=== PATIENT | male | born 1965 | race Caucasian/White ===

== ENCOUNTER 2017-01-02 19:22 | Inpatient (IN) | payer BC, MEDICAID, OTHER ==
[2017-01-02] MEDS ORDERED: IPRATROPIUM/ALBUTEROL (0.5MG/3MG) NEB INH ONE ×2 (19:26→19:29)
[2017-01-02] MEDS ORDERED: METHYLPREDNISOLONE PF 125MG/VIAL IVP ONE (19:27)
--- NOTE | 2017-01-02 19:33 | Emergency Department Record ---
History of Present Illness - General Chief Complaint: Shortness of breath Stated Complaint: KIMBERLEY,CHEST CONGESTION,WHEEZING,COUGH Time Seen by Provider: 01/02/17 19:28 Source: Patient, Family Mode of Arrival: Ambulatory Limitations: No limitations - History of Present Illness Initial Comments: 51 yo male presents with cough, congestion, shortness of breath for one week that is getting worse. He has been coughing and wheezing. He has had some brownish sputum. He is unaware of any fevers. His cough causes left sided chest pain in the lower left ribs. He denies any history of smoking. He has a history of environmental allergies and is currently being exposed to dust and cats where he lives. No history of CAD but he has had multiple TIA's in the past with the first one occurring in 1995. He takes a daily aspirin. No known history of asthma. No current PCP. He moved recently from [place] on week ago. He has had some mild calf pain since then but no swelling. MD Complaint: Cough, Shortness of breath -: Week(s) (1) Radiation: Other (left chest) Severity: Moderate Quality: Aching, Sharp Consistency: Constant Improves With: Nothing Worsens With: Coughing Context: Allergen exposure Associated Symptoms: Cough Treatments Prior to Arrival: None - Related Data Home Medications Medication Instructions Recorded Confirmed Last Taken No Home Med [NO HOME MEDS] 01/02/17 01/02/17 Unknown Allergies Allergy/AdvReac Type Severity Reaction Status Date / Time No Known Drug Allergies Allergy Verified 09/11/14 21:19 Review of Systems Constitutional: Reports: Chills, Fever. Denies: Malaise, Weakness Eyes: Denies: Eye discharge, Eye pain, Photophobia, Vision change ENT: Reports: Congestion. Denies: Throat pain Respiratory: Reports: Cough, Wheezes. Denies: Hemoptysis (brown sputum) Cardiovascular: Reports: Chest pain (left rib tenderness). Denies: Edema, Palpitations, Syncope Endocrine: Denies: Fatigue, Polydipsia, Polyuria Gastrointestinal: Denies: Abdominal pain, Diarrhea, Nausea, Vomiting Genitourinary: Denies: Dysuria, Frequency, Hematuria Musculoskeletal: Denies: Arthralgia, Back pain, Joint swelling, Myalgia, Neck pain Skin: Denies: Bruising, Change in color, Rash Neurological: Denies: Headache, Numbness, Weakness Psychiatric: Reports: Anxiety Hematological/Lymphatic: Denies: Anemia, Blood Clots, Easy bleeding, Easy bruising, Swollen glands Past Medical History - SOCIAL HISTORY Smoking Status: Never smoker - RESPIRATORY Hx Respiratory Disorders: No - CARDIOVASCULAR Hx Cardio Disorders: No - NEURO Hx Neuro Disorders: Yes Hx TIA: Yes - GI Hx GI Disorders: No - Hx Genitourinary Disorders: Yes Hx Kidney Stones: Yes - ENDOCRINE Hx Endocrine Disorders: No - MUSCULOSKELETAL Hx Musculoskeletal Disorders: No - PSYCH Hx Psych Problems: Yes Hx Anxiety: Yes - HEMATOLOGY/ONCOLOGY Hx Hematology/Oncology Disorders: No Family Medical History Hx Heart Disease: Grandparents Physical Exam - General General Appearance: Alert, Oriented x3, Cooperative, Anxious, Other (dyspneic) Limitations: No limitations - Head Head exam: Normal inspection - Eye Eye exam: Normal appearance. negative: Conjunctival injection, Periorbital swelling - ENT ENT exam: Normal exam, Mucous membranes moist Ear exam: Normal external inspection Nasal Exam: Normal inspection Mouth exam: Normal external inspection Teeth exam: Normal inspection Throat exam: Normal inspection. negative: Tonsillar erythema, Tonsillomegaly, Tonsillar exudate, R peritonsillar mass, L peritonsillar mass - Neck Neck exam: Normal inspection, Full ROM. negative: Tenderness - Respiratory Respiratory exam: Accessory muscle use, Decreased breath sounds, Prolonged expiratory, Respiratory distress (mild increase in work of breathing), Rhonchi, Wheezes. negative: Normal lung sounds bilaterally - Cardiovascular Cardiovascular Exam: Tachycardia Peripheral Pulses: 2+: Radial (R), Radial (L) - GI/Abdominal GI/Abdominal exam: Soft. negative: Tenderness - Rectal Rectal exam: Deferred - exam: Deferred - Extremities Extremities exam: Normal inspection, Full ROM, Normal capillary refill. negative: Pedal edema, Tenderness - Back Back exam: Reports: Normal inspection, Full ROM. Denies: CVA tenderness (R), CVA tenderness (L), Muscle spasm, Rash noted, Tenderness - Neurological Neurological exam: Alert, Normal gait, Oriented X3 - Psychiatric Psychiatric exam: Normal affect, Normal mood - Skin Skin exam: Dry, Intact, Normal color, Warm Course - Reevaluation(s) Reevaluation #1: The patient was very diffusely wheezy on initial examination After the first Duoneb his air exchange was greatly improved but still with diffuse wheezing EKG 19:37 Sinus rhythm rate 87, intervals normal, axis left that is new, poor R wave progress, no acute ST changes 01/02/17 19:45 01/02/17 19:54 No acute changes on the CBC with WBC count of 10 and Hgb of 16.6 01/02/17 20:10 No acute changes on the CMP except mild elevation on alt Normal Troponin 01/02/17 20:11 Influenza swabs were negative 01/02/17 20:27 The wheezing has improved but is persistent after 2 nebulized treatments. I discussed further observation and possible admission for treatments, steroids, and antibiotics. 01/02/17 20:29 The CXR was read as no acute cardiopulmonary disease and no changes form 201301/02/17 21:52 The wheezing is better but still present The CTA has been completed and waiting for results The patient continues to have left chest pain with cough. I have discussed with him admission likely due to ongoing wheezing, pending CT results. 01/02/17 22:10 I SW the radiology. No central PE. The lower long field were poorly timed and limited. There is bronchial wall thickening and mucous plugging that may be consistent with infectious cause. Given the limitations of the CT he will be given one dose of Lovenox and order LE dopplers in the AM due his recent travel and some calf pain. Medical Decision Making - Lab Data Result diagrams: 01/02/17 19:30 01/02/17 19:30 Disposition Disposition: Admit Clinical Impression: Bronchitis, Wheezing, Chest wall pain Disposition: Still a Patient at [facility] Decision to Admit: Admit from ER Decision to Admit Date: 01/02/17 Decision to Admit Time: 22:13 Forms: Patient Portal Access Time of Disposition: 22:13 Quality - Quality Measures Quality Measures: N/A - Blood Pressure Screening Does Patient Have Any of the Following: No Blood Pressure Classification: Pre-Hypertensive BP Reading Systolic Measurement: 137 Diastolic Measurement: 66 Screening for High Blood Pressure: < Pre-Hypertensive BP, F/U Documented > [ [id number]] Pre-Hypertensive Follow-up Interventions: Referral to alternative/primary care provider.
[2017-01-02] MEDS ORDERED: ACETAMINOPHEN 1,000 MG/100 ML BTL IVPB ONE (19:38)
[2017-01-02 19:40] LABS: HEMATOCRIT 47.5 % (42.0-52.0); HEMOGLOBIN 16.6 gm/dl (14.0-18.0); MEAN CORPUSCULAR HEMOGLOBIN 30.4 pg (27-33); MEAN CORPUSCULAR HGB CONC 34.9 g/dl (32-36); MEAN PLATELET VOLUME 10.2 fl (7.4-10.4); PLATELET COUNT 291 K/uL (130-400); RED BLOOD COUNT 5.46 M/uL (4.40-5.70); RED CELL DISTRIBUTION WIDTH 13.4 % (11.5-14.5); WHITE BLOOD COUNT W/O DIFF 10.2 K/uL (4.2-12.2)
[2017-01-02] MEDS ORDERED: ASPIRIN 81 MG CHEWABLE TABLET PO ONE (19:43)
[2017-01-02 19:55] LABS: ALB/GLOB RATIO 1.5 (1.1-1.8); ALBUMIN 4.5 g/dL (4.0-5.0); ALKALINE PHOSPHATASE 106 U/L (40-129); ALT/SGPT 70 U/L (<41); AST/SGOT 36 U/L (10.0-50.0); BLOOD UREA NITROGEN 15 mg/dL (6-20); CREATININE 1.2 mg/dL (0.7-1.2); EST GLOMERULAR FILTRATION RATE > 60 mL/min; GLUCOSE,RANDOM 101 mg/dL (74-109); TOTAL PROTEIN 7.5 g/dL (6.6-8.7)
[2017-01-02 19:57] LABS: TROPONIN I < 0.30 ng/mL (0.00-0.300)
[2017-01-02 19:58] LABS: INFLUENZA A NEGATIVE (NEGATIVE); INFLUENZA B NEGATIVE (NEGATIVE)
[2017-01-02] MEDS ORDERED: AZITHROMYCIN 500 MG TABLET PO ONE (20:11)
[2017-01-02] MEDS ORDERED: CEFTRIAXONE SODIUM 1 GM in 0.9 % SODIUM CHLORIDE 100ML 100 ML IVPB ONE (20:11)
[2017-01-02] MEDS ORDERED: MORPHINE SULFATE 5 MG/ML PFS IVP ONE (20:31)
[2017-01-02] MEDS ORDERED: ALBUTEROL SULFATE (0.083%) 2.5 MG/3 ML NEB INH ONE (20:33)
[2017-01-02] MEDS ORDERED: ONDANSETRON HCL IV 4 MG/2 ML VIAL IVP ONE (20:54)
[2017-01-02] MEDS ORDERED: KETOROLAC 30 MG/ML VIAL IVP ONE (21:50)
[2017-01-02] MEDS ORDERED: ENOXAPARIN 100 MG/ML SYR SQ ONE (23:13)
[2017-01-02] MEDS ORDERED: DIPHENHYDRAMINE HCL 25 MG CAPSULE PO PRN (23:13)
[2017-01-02] MEDS ORDERED: KETOROLAC 30 MG/ML VIAL IVP PRN (23:13)
[2017-01-02] MEDS ORDERED: ALBUTEROL SULFATE (0.083%) 2.5 MG/3 ML NEB INH PRN (23:13)
[2017-01-02] MEDS ORDERED: ACETAMINOPHEN 500 MG TABLET PO PRN (23:13)
[2017-01-02] MEDS: METHYLPREDNISOLONE PF 125MG/VIAL IVP SCH (23:50)
[2017-01-02] MEDS: MORPHINE SULFATE 5 MG/ML PFS IVP PRN (23:52)
[2017-01-03] MEDS: IPRATROPIUM/ALBUTEROL (0.5MG/3MG) NEB INH SCH ×6 (00:01→22:08)
--- NOTE | 2017-01-03 06:29 | History & Physical ---
History of Present Illness - Date of Service Date of Service for History & Physical: 01/03/17 - History of Present Illness Admitting Diagnosis: Dyspnea, Bronchitis, Chest pain, hypoxia History of Present Illness: 51 yo male admitted KIMBERLEY. PMHx of seasonal allergies, TIA x 3 (most recent 1.5 yrs ago), obesity. Patient presented to the ED yesterday with one week of worsening SOB. Aggravated by activity, coughing. Alleviated by breathing treatments in the ED. Associated symptoms include wheezing, brownish sputum, left sided lower rib pain, and fatigue. upon presentation, HR 110, RR 32, BP 149/100, O2 95% on RA. WBC normal, Eo slightly elevated at 10 (normal <6), normal cmp, bnp wnl, influenza a & b negative, troponin neg x 2. CXR: NAP, CTA: limited eval for PE, mild wall thickening lower lung bronchi suspicious for bronchitis, no consolidation noted. B/L venous dopplers negative. Patient received two neb treatments, IV antibiotics and IV steroid. Admitted with continuous pulse ox and library monitor. 01/03- patient lying comfortably in bed. states he feels much improved since admission. denies cp, sob, fever, chills, n/v, abd pain, change in GI or function, weakness, dizziness or lightheadedness. reports headache, consistent w/ his usual migraine headaches. B/L lower extremity calf pain as well. Patient reports recently moving to [place] from [place]. His last day of travel was Dec 22. States he's living in [facility] with friends. Reports recent resp irritation related to exposure to cats, dust. denies h/o PE, DVT, [place], CVA. reports h/o TIA x 3 (earliest in 1995, most recent in 2016). PCP: none Travel Screening - Travel/Exposure Within Last 30 Days Have you traveled within the last 30 days?: Yes Location Detail:: [place], [place] - Travel/Exposure Within Last Year Have you traveled outside the [place] in the last year?: No - Additonal Travel Details Have you been exposed to anyone with a communicable illness?: No - Travel Symptoms Symptom Screening: None - Additional Travel Comment Additional Travel/Exposure Comment: pt moved from [place] after [place]. Review of Systems Constitutional: Reports: Chills. Denies: Fever, Malaise, Weakness Eyes: Denies: Eye discharge, Eye pain, Photophobia, Vision change ENT: Reports: Congestion. Denies: Throat pain Respiratory: Reports: Cough, Wheezes. Denies: Hemoptysis (brown sputum) Cardiovascular: Denies: Chest pain, Edema, Palpitations, Syncope Endocrine: Denies: Fatigue, Polydipsia, Polyuria Gastrointestinal: Denies: Abdominal pain, Diarrhea, Nausea, Vomiting Genitourinary: Denies: Dysuria, Frequency, Hematuria Musculoskeletal: Denies: Arthralgia, Back pain, Joint swelling, Myalgia, Neck pain Skin: Denies: Bruising, Change in color, Rash Neurological: Denies: Headache, Numbness, Weakness Psychiatric: Reports: Anxiety Hematological/Lymphatic: Denies: Anemia, Blood Clots, Easy bleeding, Easy bruising, Swollen glands Past Medical History - SOCIAL HISTORY Smoking Status: Never smoker Alcohol Use: Occasional Drug Use: None - RESPIRATORY Hx Respiratory Disorders: No Hx Pneumonia: No (as an ) - CARDIOVASCULAR Hx Cardio Disorders: No Hx Chest Pain: Yes Hx Palpitations: Yes - NEURO Hx Neuro Disorders: Yes Hx Headaches: Yes (migraines) Hx TIA: Yes - GI Hx GI Disorders: No - Hx Genitourinary Disorders: Yes Hx Kidney Stones: Yes - ENDOCRINE Hx Endocrine Disorders: No Hx Diabetes: No Hx Thyroid Disease: No - MUSCULOSKELETAL Hx Musculoskeletal Disorders: No - PSYCH Hx Psych Problems: Yes Hx Anxiety: Yes - HEMATOLOGY/ONCOLOGY Hx Hematology/Oncology Disorders: No Family Medical History Any Significant Family History?: Yes Hx Cancer: Grandparents Hx Heart Disease: Father, Grandparents Hx HTN: Father, Mother Hx Stroke: Mother H&P Meds/Allergies - Allergies Allergies: Allergies Allergy/AdvReac Type Severity Reaction Status Date / Time No Known Drug Allergies Allergy Verified 09/11/14 21:19 - Home Medications Home Medications Medication Instructions Recorded Confirmed Last Taken No Home Med [NO HOME MEDS] 01/02/17 01/02/17 Unknown - Active Medications Active Medications: Current Medications Acetaminophen (Tylenol 500mg Tab) 1,000 mg PO Q6H PRN PRN Reason: PAIN/TEMP Albuterol Sulfate () 2.5 mg INH RESP.Q2H PRN PRN Reason: DIFFICULTY IN BREATHING Albuterol/Ipratropium (Duoneb) 3 ml INH RESP.Q4H.WA [facility] Last Admin: 01/03/17 06:12 Dose: 3 ml Azithromycin (Zithromax) 500 mg PO DAILY [facility] Diphenhydramine HCl (Benadryl Capsule) 25 mg PO Q6H PRN PRN Reason: SLEEP Last Admin: 01/03/17 00:52 Dose: 25 mg Ceftriaxone Sodium 1 gm/ (Sodium Chloride) 100 mls @ 100 mls/hr IVPB Q24H [facility] Stop: 01/08/17 21:01 Ketorolac Tromethamine (Toradol) 15 mg IVP Q8H PRN PRN Reason: Pain - General Methylprednisolone Sodium Succinate (Solu-Medrol) 60 mg IVP Q8HR [facility] Last Admin: 01/02/17 23:50 Dose: 60 mg Morphine Sulfate (Morphine Sulfate) 2.5 mg IVP Q4H PRN PRN Reason: Pain - General Stop: 01/09/17 23:14 Last Admin: 01/02/17 23:52 Dose: 2.5 mg Physical Exam - Vital Signs Vital Signs: Vital Signs - Last 24 Hrs Temp Pulse Pulse Resp BP Pulse Ox 01/03/17 06:16 91 H 18 92 L 01/03/17 06:12 90 18 96 01/03/17 00:01 78 20 97 01/02/17 23:13 97.9 F 79 24 131/74 96 - General General Appearance: Alert, Oriented x3, Cooperative, No acute distress Limitations: No limitations - Head Head exam: Normal inspection - Eye Eye exam: Normal appearance. negative: Conjunctival injection, Periorbital swelling - ENT ENT exam: Normal exam, Mucous membranes moist Ear exam: Normal external inspection Nasal Exam: Normal inspection Mouth exam: Normal external inspection Teeth exam: Normal inspection Throat exam: Normal inspection. negative: Tonsillar erythema, Tonsillomegaly, Tonsillar exudate, R peritonsillar mass, L peritonsillar mass - Neck Neck exam: Normal inspection, Full ROM. negative: Tenderness - Respiratory Respiratory exam: Decreased breath sounds, Prolonged expiratory, Rhonchi, Wheezes. negative: Normal lung sounds bilaterally, Accessory muscle use, Respiratory distress - Cardiovascular Cardiovascular Exam: Tachycardia Peripheral Pulses: 2+: Radial (R), Radial (L) - GI/Abdominal GI/Abdominal exam: Soft. negative: Tenderness - Rectal Rectal exam: Deferred - exam: Deferred - Extremities Extremities exam: Normal inspection, Full ROM, Normal capillary refill, Other ( pain with palpation to back of b/l calves, negative ana's sign). negative: Pedal edema, Tenderness - Back Back exam: Reports: Normal inspection, Full ROM. Denies: CVA tenderness (R), CVA tenderness (L), Muscle spasm, Rash noted, Tenderness - Neurological Neurological exam: Alert, Normal gait, Oriented X3 - Psychiatric Psychiatric exam: Normal affect, Normal mood - Skin Skin exam: Dry, Intact, Normal color, Warm Results - Labs Result Diagrams: 01/02/17 19:30 01/02/17 19:30 VTE H&P Assessment - Risk for VTE Risk for VTE: Yes Risk Level: Low Risk Assessment Date: 01/03/17 Risk Assessment Time: 10:00 VTE Orders Placed or Will Be Placed: Yes Plan - Inpatient Certification Inpatient Certification: Admit to inpatient care: Based on my medical assessment, after consideration of patient's risk factors (age, co-morbidities and patient presenting symptoms and acuity), I expect that this patient will remain in the hospital greater than or equal to two midnights and that the services needed warrant inpatient care because: Patient Risk Factors: [diff in breathing, bronchitis, shortness of breath] Estimated length of stay: [2-3 nights] The patient may reasonably be expected to be discharged or transferred to a hospital within 96 hours after admission to [facility]. Services needed: [cardiac, pulm monitoring, resp therapy, duo neb treatments, IV antibiotics, IV steroids] Post hospital care (if known): [home, self care] I certify that my determination is in accordance with my understanding of Medicare requirements for reasonable and necessary inpatient services. 01/03/17 20:13 - Detailed Diagnosis and Plan (1) Bronchitis Current Visit: Yes Status: Acute Base Code: J40 - BRONCHITIS, NOT SPECIFIED ACUTE OR CHRONIC Comment: 01/03- bronchitis vs reactive airway vs. other? - CXR: nap, CTA: suggests bronchitis. normal wbc. Eosinophils 10. afebrile - Increase Rocephin to 1 gm Q12 H, continue azithro 500 IV qd, IV Solu medrol 60 mg Q8H, duo neb treatments Q4H WA, inh albuterol Q2PRN. - continuous pulse ox and library monitor - supplemental O2 as needed - VS Q8H - tylenol, motrin PRN for any fever - Restoril QHS prn for sleep, anxiety - will monitor closely (2) Wheezing Current Visit: Yes Status: Acute Base Code: R06.2 - WHEEZING Comment: - bronchitis vs reactive airway vs. other? - CXR: nap, CTA: suggests bronchitis. normal wbc. Eosinophils 10. afebrile - Increase Rocephin to 1 gm Q12 H, continue azithro 500 IV qd, IV Solu medrol 60 mg Q8H, duo neb treatments Q4H WA, inh albuterol Q2PRN. - continuous pulse ox and library monitor - supplemental O2 as needed - VS Q8H - tylenol, motrin PRN for any fever - Restoril QHS prn for sleep, anxiety - will monitor closely (3) Full code status Current Visit: Yes Status: Acute Base Code: Z78.9 - OTHER SPECIFIED HEALTH STATUS Comment: 01/03- pt is full code
[2017-01-03] MEDS: METHYLPREDNISOLONE PF 125MG/VIAL IVP SCH ×3 (06:39→22:09)
[2017-01-03] MEDS: MORPHINE SULFATE 5 MG/ML PFS IVP PRN (06:40)
[2017-01-03] MEDS: ONDANSETRON HCL IV 4 MG/2 ML VIAL IVP PRN ×2 (08:49→15:56)
[2017-01-03] MEDS ORDERED: FLU VAC QS 2017-18 (INPT, 6MO+) 60MCG/0.5ML IM ONE (09:15)
[2017-01-03] MEDS: CEFTRIAXONE SODIUM 1 GM in 0.9 % SODIUM CHLORIDE 100ML 100 ML IVPB SCH ×2 (09:54→22:08)
--- NOTE | 2017-01-03 09:57 | RADIOLOGY REPORT ---
EXAM: CHEST, TWO VIEWS HISTORY: COUGH AND CONGESTION FOR THE LAST FEW DAYS. SEASONAL ALLERGIES. TECHNIQUE: Upright PA and lateral views of the chest were obtained. Comparison: Chest one view dated 08/21/13. FINDINGS: The heart is normal in size and the pulmonary vasculature is nondilated. The thoracic aorta is mildly tortuous. The lungs and pleural spaces appear clear. Mild degenerative end plate changes are scattered throughout the visualized spine. IMPRESSION: NO RADIOGRAPHIC EVIDENCE OF ACUTE CARDIOPULMONARY DISEASE. JOB [facility]BER: [id number] [facility]
[2017-01-03] MEDS: AZITHROMYCIN 500 MG TABLET PO SCH (10:03)
--- NOTE | 2017-01-03 10:06 | CT ANGIOGRAM REPORT ---
EXAM: CT ANGIOGRAM OF THE CHEST HISTORY: COUGH, WHEEZING AND CONGESTION FOR SEVERAL DAYS. TECHNIQUE: Routine CT angiogram of the chest was performed utilizing a pulmonary embolus protocol with 80 ml of Omnipaque 350 utilized. Coronal and sagittal reformatted images were generated and reviewed. Comparison: Two view chest radiographic examination dated 01/02/17. FINDINGS: Opacification of the lower lobe arteries is suboptimal. There is no evidence of luminal filling defect within the outflow tract, main arteries, upper lobar arteries nor upper segmental arteries. Embolus within the lower lobe and right middle lobe arteries cannot be excluded. The heart is not enlarged. No mediastinal nor hilar mass/lymphadenopathy. No lung consolidation. There is minor linear scarring versus atelectasis within the anterior lungs. There is questionable minor thickening of the bronchi of the lower lungs suspicious for mild bronchitis. Mucous plugging is demonstrated within the lateral basal segmental bronchus of the right lower lobe. 1 The adrenal glands are not enlarged. No lytic or blastic bone lesion identified. IMPRESSION: 1. EVALUATION FOR PULMONARY EMBOLIC DISEASE IS SIGNIFICANTLY LIMITED WITHIN THE LOWER LOBES AND RIGHT MIDDLE LOBE. NO EMBOLUS IS NOTED ELSEWHERE. 2. MILD WALL THICKENING OF THE BRONCHI PARTICULARLY IN THE LOWER LUNGS SUSPICIOUS FOR BRONCHITIS. NO LUNG CONSOLIDATION. 3. MINOR LINEAR SCARRING VERSUS ATELECTASIS IN THE ANTERIOR LUNG BASES. JOB [facility]BER: [id number] [facility]
--- NOTE | 2017-01-03 10:13 | US VENOUS DOPPLER REPORT ---
EXAM: EMERGENCY BILATERAL LOWER EXTREMITY VENOUS DOPPLER ULTRASOUND HISTORY: CALF PAIN, RECENT TRAVEL. CALF PAIN GREATEST ON THE RIGHT. TECHNIQUE: Emergency venous Doppler ultrasound of the lower extremities was performed bilaterally. Color flow and spectral analysis Doppler were utilized. Compression and flow augmentation maneuvers were utilized in the region of the thigh and popliteal region as well. Comparison: No prior venous Doppler ultrasound with which to compare. FINDINGS: Attention was initially directed to the right lower extremity. Venous Doppler ultrasound of the right lower extremity appears negative. Flow is seen throughout from the level of the inguinal region down to the ankle. Flow augmentation and compression was evidence in the venous anatomy of the thigh and popliteal region as well. No DVT evident on the right. Attention was then directed to the left lower extremity. Similar negative findings were seen on the left. Flow is seen throughout from the inguinal region down to the ankle. Flow augmentation and compressibility was seen in the veins of the thigh and popliteal region as well. No DVT evident on the left. IMPRESSION: NEGATIVE VENOUS DOPPLER ULTRASOUND OF THE LOWER EXTREMITIES BILATERALLY WITH NO DVT EVIDENT ON EITHER SIDE. [facility]: [id number] [facility]
[2017-01-03] MEDS ORDERED: SUMATRIPTAN 6 MG/0.5 ML VIAL SQ PRN (15:16)
[2017-01-03] MEDS: KETOROLAC 30 MG/ML VIAL IVP PRN (16:31)
[2017-01-03] MEDS ORDERED: CEFTRIAXONE SODIUM 1 GM in 0.9 % SODIUM CHLORIDE 100ML 100 ML IVPB SCH (21:00)
[2017-01-03] MEDS: TEMAZEPAM 15 MG CAPSULE PO PRN (22:22)
[2017-01-04] MEDS: IPRATROPIUM/ALBUTEROL (0.5MG/3MG) NEB INH SCH ×5 (06:01→21:49)
[2017-01-04] MEDS: METHYLPREDNISOLONE PF 125MG/VIAL IVP SCH ×3 (06:03→22:03)
[2017-01-04] MEDS: AZITHROMYCIN 500 MG TABLET PO SCH (09:49)
[2017-01-04] MEDS: KETOROLAC 30 MG/ML VIAL IVP PRN (09:54)
[2017-01-04] MEDS: ENOXAPARIN 40 MG/0.4 ML SYR SQ SCH (10:00)
[2017-01-04] MEDS: CEFTRIAXONE SODIUM 1 GM in 0.9 % SODIUM CHLORIDE 100ML 100 ML IVPB SCH ×2 (11:11→22:03)
--- NOTE | 2017-01-04 11:15 | Physician Progress Note ---
Subjective - Date Date of Physician Progress Note: 01/04/17 - Subjective Subjective Comment: sitting up at the side of the bed comfortably. normal O2 saturation on RA denies cp, sob, fever, chill, n/v, abd pain normal appetite, GI/ function states Restoril helped with sleep/anxiety. ALMONTE has now resolved Objective - Vital Signs Vital Signs: Vital Signs - Last 24 Hrs Temp Pulse Pulse Resp BP Pulse Ox 01/04/17 10:00 89 14 95 01/04/17 09:00 16 01/04/17 08:00 98.1 F 88 18 136/78 90 L 01/04/17 06:01 888 H 16 96 01/03/17 23:21 98.2 F 92 H 24 128/69 94 L 01/03/17 22:13 81 16 92 L 01/03/17 22:08 81 16 95 01/03/17 16:00 99.0 F 86 18 122/78 92 L - General General Appearance: Alert, Oriented x3, Cooperative, No acute distress Limitations: No limitations - Head Head exam: Normal inspection - Eye Eye exam: Normal appearance. negative: Conjunctival injection, Periorbital swelling - ENT ENT exam: Normal exam, Mucous membranes moist Ear exam: Normal external inspection Nasal Exam: Normal inspection Mouth exam: Normal external inspection Teeth exam: Normal inspection Throat exam: Normal inspection. negative: Tonsillar erythema, Tonsillomegaly, Tonsillar exudate, R peritonsillar mass, L peritonsillar mass - Neck Neck exam: Normal inspection, Full ROM. negative: Tenderness - Respiratory Respiratory exam: Decreased breath sounds, Prolonged expiratory. negative: Normal lung sounds bilaterally, Accessory muscle use, Respiratory distress, Rhonchi, Wheezes - Cardiovascular Cardiovascular Exam: Regular rate Peripheral Pulses: 2+: Radial (R), Radial (L) - GI/Abdominal GI/Abdominal exam: Soft. negative: Tenderness - Rectal Rectal exam: Deferred - exam: Deferred - Extremities Extremities exam: Normal inspection, Full ROM, Normal capillary refill. negative: Calf tenderness, Pedal edema, Tenderness - Back Back exam: Reports: Normal inspection, Full ROM. Denies: CVA tenderness (R), CVA tenderness (L), Muscle spasm, Rash noted, Tenderness - Neurological Neurological exam: Alert, Normal gait, Oriented X3 - Psychiatric Psychiatric exam: Normal affect, Normal mood - Skin Skin exam: Dry, Intact, Normal color, Warm Assessment and Plan - Assessment and Plan (1) Bronchitis Current Visit: Yes Status: Acute Base Code: J40 - BRONCHITIS, NOT SPECIFIED ACUTE OR CHRONIC Comment: 01/04- bronchitis vs reactive airway vs. other? - CXR: nap, CTA: suggests bronchitis. normal wbc. Eosinophils 10. remains afebrile - Continue Rocephin 1 gm Q12 H, azithro 500 IV qd, IV Solu medrol 60 mg Q8H, duo neb treatments Q4H WA, inh albuterol Q2PRN. 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 other? - CXR: nap, CTA: suggests bronchitis. normal wbc. Eosinophils 10. remains afebrile - Continue Rocephin 1 gm Q12 H, azithro 500 IV qd, IV Solu medrol 60 mg Q8H, duo neb treatments Q4H WA, inh albuterol Q2PRN. 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 as needed - VS Q8H - tylenol, motrin PRN for any fever - Restoril QHS prn for sleep, anxiety (3) Full code status Current Visit: Yes Status: Acute Base Code: Z78.9 - OTHER SPECIFIED HEALTH STATUS Comment: 01/04- pt is full code Results - Labs Result Diagrams: 01/02/17 19:30 01/02/17 19:30 DVT/PE Assessment - Risk for VTE Risk for VTE: No Risk Level: Low Risk Assessment Date: 01/03/17 Risk Assessment Time: 10:00 VTE Orders Placed or Will Be Placed: Yes - Active Medicaitons Current Medications: Current Medications Acetaminophen (Tylenol 500mg Tab) 1,000 mg PO Q6H PRN PRN Reason: PAIN/TEMP Last Admin: 01/03/17 10:41 Dose: 1,000 mg Albuterol Sulfate () 2.5 mg INH RESP.Q2H PRN PRN Reason: DIFFICULTY IN BREATHING Albuterol/Ipratropium (Duoneb) 3 ml INH RESP.Q4H.[facility] Last Admin: 01/04/17 10:02 Dose: 3 ml Azithromycin (Zithromax) 500 mg PO DAILY [facility] Last Admin: 01/04/17 09:49 Dose: 500 mg Diphenhydramine HCl (Benadryl Capsule) 25 mg PO Q6H PRN PRN Reason: SLEEP Last Admin: 01/03/17 00:52 Dose: 25 mg Enoxaparin Sodium (Lovenox) 40 mg SQ DAILY [facility] Ceftriaxone Sodium 1 gm/ (Sodium Chloride) 100 mls @ 200 mls/hr IVPB Q12H [facility] Stop: 01/08/17 10:01 Last Infusion: 01/03/17 22:40 Dose: Infused Ketorolac Tromethamine (Toradol) 30 mg IVP Q8H PRN PRN Reason: Pain - General Stop: 01/08/17 15:17 Last Admin: 01/04/17 09:54 Dose: 30 mg Methylprednisolone Sodium Succinate (Solu-Medrol) 60 mg IVP Q8HR [facility] Last Admin: 01/04/17 06:03 Dose: 60 mg Morphine Sulfate (Morphine Sulfate) 2.5 mg IVP Q4H PRN PRN Reason: Pain - General Stop: 01/09/17 23:14 Last Admin: 01/03/17 06:40 Dose: 2.5 mg Ondansetron HCl (Zofran) 4 mg IVP Q4H PRN PRN Reason: NAUSEA Last Admin: 01/03/17 15:56 Dose: 4 mg Sumatriptan Succinate (Imitrex) 6 mg SQ ONCE PRN PRN Reason: SEE DOSE INSTRUCTIONS Last Admin: 01/03/17 19:10 Dose: 6 mg Temazepam (Restoril) 15 mg PO QHS PRN PRN Reason: INSOMNIA Last Admin: 01/03/17 22:22 Dose: 15 mg AMI Plan - Labs Result Diagrams: 01/02/17 19:30 01/02/17 19:30
--- NOTE | 2017-01-04 11:15 | Discharge Summary ---
Providers Discharge Summary Date: 01/05/17 Date of admission: 01/02/17 23:04 Expected Date of Discharge: 01/05/17 Attending physician: Omi Garcia Physical Exam - Vital Signs Vital Signs: Vital Signs - Last 24 Hrs Temp Pulse Pulse Resp BP Pulse Ox 01/04/17 10:00 89 14 95 01/04/17 09:00 16 01/04/17 08:00 98.1 F 88 18 136/78 90 L 01/04/17 06:01 888 H 16 96 01/03/17 23:21 98.2 F 92 H 24 128/69 94 L 01/03/17 22:13 81 16 92 L 01/03/17 22:08 81 16 95 01/03/17 16:00 99.0 F 86 18 122/78 92 L - General General Appearance: Alert, Oriented x3, Cooperative, No acute distress Limitations: No limitations - Head Head exam: Normal inspection - Eye Eye exam: Normal appearance. negative: Conjunctival injection, Periorbital swelling - ENT ENT exam: Normal exam, Mucous membranes moist Ear exam: Normal external inspection Nasal Exam: Normal inspection Mouth exam: Normal external inspection Teeth exam: Normal inspection Throat exam: Normal inspection. negative: Tonsillar erythema, Tonsillomegaly, Tonsillar exudate, R peritonsillar mass, L peritonsillar mass - Neck Neck exam: Normal inspection, Full ROM. negative: Tenderness - Respiratory Respiratory exam: negative: Normal lung sounds bilaterally, Accessory muscle use , Chest wall tenderness, Prolonged expiratory, Rales, Respiratory distress, Rhonchi, Stridor, Wheezes - Cardiovascular Cardiovascular Exam: Regular rate Peripheral Pulses: 2+: Radial (R), Radial (L) - GI/Abdominal GI/Abdominal exam: Soft. negative: Tenderness - Rectal Rectal exam: Deferred - exam: Deferred - Extremities Extremities exam: Normal inspection, Full ROM, Normal capillary refill. negative: Calf tenderness, Pedal edema, Tenderness - Back Back exam: Reports: Normal inspection, Full ROM. Denies: CVA tenderness (R), CVA tenderness (L), Muscle spasm, Rash noted, Tenderness - Neurological Neurological exam: Alert, Normal gait, Oriented X3 - Psychiatric Psychiatric exam: Normal affect, Normal mood - Skin Skin exam: Dry, Intact, Normal color, Warm Hospitalization - Hospitalization Admission Diagnosis: Dyspnea, Bronchitis, Chest pain, hypoxia - Problem List/Discharge Diagnosis (1) Bronchitis Current Visit: Yes Status: Acute Base Code: J40 - BRONCHITIS, NOT SPECIFIED ACUTE OR CHRONIC Comment: 01/05- bronchitis vs reactive airway vs. other? - CXR: nap, CTA: suggests bronchitis. normal wbc. Eosinophils 10. - Continue azithro 500 PO daily through 01/06, prednisone taper, duo neb treatments Q4H WA, inh albuterol Q2PRN. - Patient recently moved to [place] and will be establishing care with the [facility]. Patient working with our healthcare business analyst to set up a follow up visit. - he agree's to return re any new or worsening symptoms (i.e fever, chills, [place] , SOB, etc) (2) Wheezing Current Visit: Yes Status: Acute Base Code: R06.2 - WHEEZING Comment: - bronchitis vs reactive airway vs. other? - CXR: nap, CTA: suggests bronchitis. normal wbc. Eosinophils 10. - Continue azithro 500 PO daily through 01/06, prednisone taper, duo neb treatments Q4H WA, inh albuterol Q2PRN. - Patient recently moved to [place] and will be establishing care with the [facility]. Patient working with our healthcare business analyst to set up a follow up visit. (3) Full code status Current Visit: Yes Status: Acute Base Code: Z78.9 - OTHER SPECIFIED HEALTH STATUS Comment: 01/05- pt remained full code (4) Headache Current Visit: Yes Status: Acute Base Code: R51 - HEADACHE Comment: 01/05 - resembles patient usual migraine headache. + nausea. denies visual changes, dizziness or vomiting. - imitrex sent to pharmacy - zofran prn for nausea - protonix 40 mg po qd- noting steroid use - rest in dark space, increased fluids encouraged. - Hospitalization Course Hospital Course: 51 yo male admitted [place]. PMHx of seasonal allergies, TIA x 3 (most recent 1.5 yrs ago), obesity. Patient presented to the ED yesterday with one week of worsening SOB. Aggravated by activity, coughing. Alleviated by breathing treatments in the ED. Associated symptoms include wheezing, brownish sputum, left sided lower rib pain, and fatigue. upon presentation, HR 110, RR 32, BP 149/100, O2 95% on RA. WBC normal, Eo slightly elevated at 10 (normal <6), normal cmp, bnp wnl, influenza a & b negative, troponin neg x 2. CXR: NAP, CTA: limited eval for PE, mild wall thickening lower lung bronchi suspicious for bronchitis, no consolidation noted. B/L venous dopplers negative. Patient received two neb treatments, IV antibiotics and IV steroid. Admitted with continuous pulse ox and rn cardiac rehab. 01/03- patient lying comfortably in bed. states he feels much improved since admission. denies cp, sob, fever, chills, n/v, abd pain, change in GI or function, weakness, dizziness or lightheadedness. reports headache, consistent w/ his usual migraine headaches. B/L lower extremity calf pain as well. Patient reports recently moving to [place] from [place]. His last day of travel was Dec 22. States he's living in [facility] with friends. Reports recent resp irritation related to exposure to cats, dust. denies h/o PE, DVT, [place], CVA. reports h/o TIA x 3 (earliest in 1995, most recent in 2015). PCP: none 01/04- sitting up at the side of the bed comfortably. normal O2 saturation on RA denies cp, sob, fever, chill, n/v, abd pain normal appetite, GI/ function states Restoril helped with sleep/anxiety. ALMONTE has now resolved 01/05- patient lying in bed. headache has return today with nausea. patient not wanting to take anything for almonte until his nausea resolves. patient states these symptoms resembles his typical migraine. denies any vision changes, vomiting. Normal bowel habits. denies hematochezia, melena, abd pain, fever, chills. non productive cough improving. ate crackers for breakfast. patient ambulating the room. Procedures: Imaging and X-Rays 01/03/17 07:00 VENOUS DOPPLER LOWER EXT SILAS [US] Stat Condition at Discharge: (1) Good Discharge Medications - Discharge Medications Prescriptions: Albuterol Sulfate 0.083% [Neb] 2.5 mg INH RESP.Q2H PRN #120 neb PRN Reason: Difficulty In Breathing Azithromycin [Zithromax] 500 mg PO DAILY #1 tab Ipratropium/Albuterol [Duoneb] 3 ml INH RESP.Q4H.[place] #180 Ondansetron HCl [Zofran] 4 mg PO TID PRN #10 tablet PRN Reason: Nausea Pantoprazole Sodium 40 mg PO DAILY #30 tablet. Prednisone [Prednisone 20Mg] 20 mg PO DAILY #21 tab Sumatriptan Succinate [Imitrex] 25 mg PO ASDIR #20 tablet Home Medications: Ambulatory Orders Albuterol Sulfate 0.083% [Neb] 2.5 mg INH RESP.Q2H PRN #120 neb 01/05/17 [Last Taken Unknown] Azithromycin [Zithromax] 500 mg PO DAILY #1 tab 01/05/17 [Last Taken Unknown] Ipratropium/Albuterol [Duoneb] 3 ml INH RESP.Q4H.[place] #180 01/05/17 [Last Taken Unknown] Ondansetron HCl [Zofran] 4 mg PO TID PRN #10 tablet 01/05/17 [Last Taken Unknown ] Pantoprazole Sodium 40 mg PO DAILY #30 tablet. 01/05/17 [Last Taken Unknown] Prednisone [Prednisone 20Mg] 20 mg PO DAILY #21 tab 01/05/17 [Last Taken Unknown ] Sumatriptan Succinate [Imitrex] 25 mg PO ASDIR #20 tablet 01/05/17 [Last Taken Unknown] Discharge Plan - Discharge Instructions Activity at Discharge: Increase Activity as Tolerated Diet at Discharge: Regular Diet Instructions: Migraine Headache (GEN), Acute Bronchitis (GEN) Additional Instructions: Medications: - take your final dose of antibiotic (Azithromycin) on 01/06. - complete steroid (prednisone) taper as prescribed. - pantoprazole 40 mg 30 minutes prior to a meal for stomach protection - zofran for any nausea - imtrex 25 mg x1, may repeat dose once after 2 hours. - duo neb treatments (albuterol/ipratropium) Q4-6 hours. - albuterol inhalation Q2-4 in addition if needed - rest, increase fluids - avoid allergens (dust, cat dander) when possible, as these may worsen your symptoms - follow up with the [facility] as scheduled with our healthcare business analyst - please return re any new or worsening symptoms (i.e- increased shortness of breath, fever >102, chest pain, dizziness, etc) - if you don't hear from our office by Monday, please contact our office at . Quality Measures - Quality Measures Quality Measures: Documentation of Current Medications in Medical Record, Screening for High Blood Pressure and F/U Documented - Current Medications Quality Measure: Measure #130: Documentation of Current Medications Documentation of Current Medications: <Current Medications Documented/Reviewed> [G8427] - Blood Pressure Screening Quality Measure: Screening for High Blood Pressure and Follow-Up Documented Does Patient Have Any of the Following: Active Dx of HTN Blood Pressure Classification: Pre-Hypertensive BP Reading Systolic Measurement: 121 Diastolic Measurement: 82 Screening for High Blood Pressure: Patient Exclusion, Hx of HTN [G9744] - Elder Abuse Suspicion Index EASI Reference Information: Ofelia VOGEL, Bry C, Cheyanne D, Tamara Leiva.Development and validation of a tool to assist physicians identification of elder abuse: The Elder Abuse Suspicion Index (EASI ). Journal of Elder Abuse and Neglect, 2008; 20 (3): 276-300.
[2017-01-04] MEDS ORDERED: SUMATRIPTAN 6 MG/0.5 ML VIAL SQ PRN (16:30)
[2017-01-04] MEDS: ONDANSETRON HCL IV 4 MG/2 ML VIAL IVP PRN (21:15)
[2017-01-04] MEDS: TEMAZEPAM 15 MG CAPSULE PO PRN (21:17)
[2017-01-05] MEDS: IPRATROPIUM/ALBUTEROL (0.5MG/3MG) NEB INH SCH ×3 (05:53→17:29)
[2017-01-05] MEDS: METHYLPREDNISOLONE PF 125MG/VIAL IVP SCH (06:22)
[2017-01-05] MEDS ORDERED: PANTOPRAZOLE SODIUM 40 MG TABLET PO SCH ×2 (07:00→10:30)
[2017-01-05] MEDS: CEFTRIAXONE SODIUM 1 GM in 0.9 % SODIUM CHLORIDE 100ML 100 ML IVPB SCH (09:40)
[2017-01-05] MEDS: ENOXAPARIN 40 MG/0.4 ML SYR SQ SCH (09:41)
[2017-01-05] MEDS: AZITHROMYCIN 500 MG TABLET PO SCH (09:41)
[2017-01-05] MEDS ORDERED: AL HYDROX/MAG HYDROX 30ML UD PO ONE (10:33)
[2017-01-05] MEDS ORDERED: PREDNISONE 20 MG TAB PO ONE (10:43)
[2017-01-05] MEDS: ONDANSETRON HCL IV 4 MG/2 ML VIAL IVP PRN (11:17)
[2017-01-05] MEDS: KETOROLAC 30 MG/ML VIAL IVP PRN (14:07)
[2017-01-05] MEDS ORDERED: PROMETHAZINE HCL 25 MG/ML VIAL IM ONE (14:15)
== END 2017-01-05 18:38 | disposition home or self-care (01) | DRG 203 ==
LOC: ER 19:22 → INTOOBSV 23:04 → OBSVTOIN 23:04 → MEDSURG 23:04
PROVIDERS: ADMIT Internal Medicine; ATTEND Internal Medicine
DX: J20.9 Acute bronchitis, unspecified (principal); Z78.9 Other specified health status; R51 Headache; Z86.73 Personal history of transient ischemic attack (TIA), and cerebral infarction without residual deficits; G43.909 Migraine, unspecified, not intractable, without status migrainosus
CPT/HCPCS: 71020; 71275; 80053; 83880; 84484; 85027; 85379; 87400; 90686; 93005; 93010; 93970; 94640; 94760; 94761; 96365; 96366; 96375; 99223; 99232; 99239; 99285; J1650; J1885; J2405; J2550; J2930; J3030; J7613

== ENCOUNTER 2017-03-25 17:55 | Emergency (ER) | payer BC ==
[2017-03-25 18:29] LABS: BASO % 0.6 % (0-6); EOS % 9.4 % (0-6); GRAN % 62.4 % (47-80); HEMATOCRIT 44.9 % (42.0-52.0); HEMOGLOBIN 15.6 gm/dl (14.0-18.0); LYMPH % 18.5 % (16-45); MEAN CORPUSCULAR HEMOGLOBIN 30.6 pg (27-33); MEAN CORPUSCULAR HGB CONC 34.7 g/dl (32-36); MEAN PLATELET VOLUME 10.1 fl (7.4-10.4); MONO % 9.1 % (0-9); PLATELET COUNT 260 K/uL (130-400); RED CELL DISTRIBUTION WIDTH 13.1 % (11.5-14.5); WHITE BLOOD COUNT W/O DIFF 7.1 K/uL (4.2-12.2)
--- NOTE | 2017-03-25 18:37 | Emergency Department Record ---
History of Present Illness - General Chief Complaint: Numbness Stated Complaint: STROKE LIKE SYMTOMS Time Seen by Provider: 03/25/17 18:14 Source: Patient, RN notes reviewed Mode of Arrival: Ambulatory - History of Present Illness Initial Comments: patient has numbness in the right side of neck and right sided headache and no weakness, ambulating without problems , no slurred speech and no facial droop. history of migraines Onset/Timin -: Days(s) History of same: Yes Place: Home Severity: Moderate Quality: Numb, Tingling, Weak - April Coma Scale Eye Response: (4) Open spontaneously Motor Response: (6) Obeys commands Verbal Response: (5) Oriented [place] Total: 15 - Symptoms of Stroke Onset of Symptoms Date: 03/24/17 Onset of Symptoms Time: 10:30 Symptoms of stroke: Numbness - Related Data Home Medications: Home Medications Medication Instructions Recorded Confirmed Last Taken Aspirin 81 mg PO DAILY 03/25/17 03/25/17 1 Day Ago ~03/24/17 Previous Rx's Medication Instructions Recorded Albuterol Sulfate 0.083% [Neb] 2.5 mg INH RESP.Q2H PRN #120 neb 01/05/17 Ipratropium/Albuterol [Duoneb] 3 ml INH RESP.Q4H.[place] #180 01/05/17 Pantoprazole Sodium 40 mg PO DAILY #30 tablet. 01/05/17 Sumatriptan Succinate [Imitrex] 25 mg PO ASDIR #20 tablet 01/05/17 Hydrocodone/Acetaminophen [Bernard 1 each PO Q6HR #10 tablet 03/25/17 5-325 Tablet] Allergies/Adverse Reactions: Allergies Allergy/AdvReac Type Severity Reaction Status Date / Time No Known Drug Allergies Allergy Verified 03/25/17 18:08 Travel Screening - Travel/Exposure Within Last 30 Days Have you traveled within the last 30 days?: No - Travel/Exposure Within Last Year Have you traveled outside the [place] in the last year?: No - Additonal Travel Details Have you been exposed to anyone with a communicable illness?: No - Travel Symptoms Symptom Screening: None Review of Systems Reviewed: No additional complaints except as noted below Constitutional: Reports: As per HPI. Denies: Chills, Fever, Malaise, Night sweats, Weakness, Weight change Eyes: Reports: As per HPI. Denies: Eye discharge, Eye pain, Photophobia, Vision change ENT: Reports: As per HPI. Denies: Congestion, Dental pain, Ear pain, Epistaxis , Hearing loss, Throat pain Respiratory: Reports: As per HPI. Denies: Cough, Dyspnea, Hemoptysis, Stridor, Wheezes Cardiovascular: Reports: As per HPI. Denies: Arrhythmia, Chest pain, Dyspnea on exertion, Edema, Murmurs, Orthopnea, Palpitations, Paroxysmal nocturnal dyspnea, Rheumatic Fever, Syncope Endocrine: Reports: As per HPI. Denies: Fatigue, Heat or cold intolerance, Polydipsia, Polyuria Gastrointestinal: Reports: As per HPI. Denies: Abdominal pain, Constipation, Diarrhea, Hematemesis, Hematochezia, Melena, Nausea, Vomiting Genitourinary: Reports: As per HPI. Denies: Dysuria, Frequency, Hematuria, Incontinence, Retention, Testicular pain, Testicular mass, Urgency Musculoskeletal: Reports: As per HPI. Denies: Arthralgia, Back pain, Gout, Joint swelling, Myalgia, Neck pain Skin: Reports: As per HPI. Denies: Bruising, Change in color, Change in hair/ nails, Lesions, Pruritus, Rash Neurological: Reports: As per HPI, Headache. Denies: Abnormal gait, Confusion, Numbness, Paresthesias, Seizure, Tingling, Tremors, Vertigo, Weakness Psychiatric: Reports: As per HPI. Denies: Anxiety, Auditory hallucinations, Depression, Homicidal thoughts, Suicidal thoughts, Visual hallucinations Hematological/Lymphatic: Reports: As per HPI. Denies: Anemia, Blood Clots, Easy bleeding, Easy bruising, Swollen glands Past Medical History - SOCIAL HISTORY Smoking Status: Never smoker Alcohol Use: None, Rare Drug Use: None - RESPIRATORY Hx Respiratory Disorders: No Hx Pneumonia: No (as an ) - CARDIOVASCULAR Hx Cardio Disorders: No Hx Chest Pain: Yes Hx Palpitations: Yes - NEURO Hx Neuro Disorders: Yes Hx Headaches: Yes (migraines) Hx TIA: Yes (x2 last 2014) - GI Hx GI Disorders: No - Hx Genitourinary Disorders: Yes Hx Kidney Stones: Yes - ENDOCRINE Hx Endocrine Disorders: No Hx Diabetes: No Hx Thyroid Disease: No - MUSCULOSKELETAL Hx Musculoskeletal Disorders: No - PSYCH Hx Psych Problems: Yes Hx Anxiety: Yes - HEMATOLOGY/ONCOLOGY Hx Hematology/Oncology Disorders: No Family Medical History Any Significant Family History?: Yes Hx Cancer: Grandparents Hx Heart Disease: Father, Grandparents Hx HTN: Father, Mother Hx Stroke: Mother Course Vital Signs 03/25/17 18:01 Temperature 97.7 F Pulse Rate 74 Respiratory 20 Rate Blood Pressure 156/115 Pulse Ox 98 - Reevaluation(s) Reevaluation #1: numbness is improving and 03/25/17 19:02 Medical Decision Making - Lab Data Result diagrams: 03/25/17 18:20 03/25/17 18:20 Lab Results 03/25/17 Range/Units 18:20 WBC 7.1 (4.2-12.2) K/uL RBC 5.10 (4.40-5.70) M/uL Hgb 15.6 (14.0-18.0) gm/dl Hct 44.9 (42.0-52.0) % MCV 88.0 (81-97) fl MCH 30.6 (27-33) pg MCHC 34.7 (32-36) g/dl RDW 13.1 (11.5-14.5) % Plt Count 260 (130-400) K/uL MPV 10.1 (7.4-10.4) fl Gran % 62.4 (47-80) % Lymphocytes % 18.5 (16-45) % Monocytes % 9.1 H (0-9) % Eosinophils % 9.4 H (0-6) % Basophils % 0.6 (0-6) % Disposition Clinical Impression: TIA (transient ischemic attack) Headache Qualifiers: Headache type: unspecified Headache chronicity pattern: acute headache Intractability: not intractable Qualified Code(s): R51 - Headache Disposition: Home, Self-Care Condition: (1) Good Instructions: Transient Ischemic Attack (ED), General Headache (ED) Additional Instructions: follow up Dr. Chávez on thurs [id number] increase aspirin to 325 mg per day Prescriptions: Hydrocodone/Acetaminophen [Bernard 5-325 Tablet] 1 each PO Q6HR #10 tablet Forms: Patient Portal Access Time of Disposition: 19:09 Quality - Quality Measures Quality Measures: N/A - Blood Pressure Screening Does Patient Have Any of the Following: No Blood Pressure Classification: Hypertensive Reading Systolic Measurement: 156 Diastolic Measurement: 115 Screening for High Blood Pressure: < First Hypertensive BP, F/U Documented > [ G7586] First Hypertensive Follow-up Interventions: Referral to alternative/primary care provider.
[2017-03-25 18:39] LABS: BLOOD UREA NITROGEN 14 mg/dL (6-20); EST GLOMERULAR FILTRATION RATE > 60 mL/min
[2017-03-25 18:42] LABS: GLUCOSE,RANDOM 95 mg/dL (74-109)
[2017-03-25 18:46] LABS: ACETAMINOPHEN < 5.0 ug/mL (10.0-30.0)
[2017-03-25] MEDS ORDERED: HYDROCODONE/APAP 5/325MG TABLET PO ONE (19:05)
[2017-03-25] MEDS ORDERED: ONDANSETRON 4 MG ODT TABLET SL ONE (19:05)
[2017-03-25 19:32] LABS: AMPHETAMINE SCREEN URINE NOT DETECTED; BARBITURATE SCREEN URINE NOT DETECTED; BENZODIAZEPINE SCREEN URINE NOT DETECTED; COCAINE SCREEN URINE NOT DETECTED; METHADONE SCREEN URINE NOT DETECTED; METHAMPHETAMINE SCREEN NOT DETECTED; OPIATE SCREEN URINE NOT DETECTED; OXYCODONE SCREEN URINE NOT DETECTED; PHENCYCLIDINE SCREEN URINE NOT DETECTED; PROPOXYPHENE SCREEN URINE NOT DETECTED; THC SCREEN URINE NOT DETECTED; TRICYCLIC ANTIDEPRESSANT SCRN NOT DETECTED; URINE APPEARANCE CLEAR; URINE BILIRUBIN NEGATIVE (NEGATIVE); URINE BLOOD NEGATIVE (NEGATIVE); URINE COLOR YELLOW; URINE GLUCOSE (UA) NEGATIVE (NEGATIVE); URINE KETONE NEGATIVE (NEGATIVE); URINE LEUKOCYTE ESTERASE NEGATIVE (NEGATIVE); URINE NITRITE NEGATIVE (NEGATIVE); URINE PROTEIN NEGATIVE (NEGATIVE); URINE UROBILINOGEN 0.2 E.U./dL (0.20 - 1.00)
--- NOTE | 2017-03-26 08:39 | CT SCAN REPORT ---
EXAM: CT SCAN HEAD WO CONTRAST HISTORY: HEADACHE. FACIAL AND NECK PARESTHESIAS. FINDINGS BEGAN THE PREVIOUS NIGHT AT 10:30 P.M. PATIENT DOES REPORT PREVIOUS TIAs WHILE LIVING IN [place]. PATIENT REPORTS RIGHT-SIDED PARESTHESIAS AND HEADACHE CURRENTLY. TECHNIQUE: Routine noncontrast CT images of the head were obtained. FINDINGS: Ventricles, basal cisterns, and sulci are of normal size, shape, and configuration. No midline shift or mass effect. Singh-white differentiation well- maintained throughout both cerebral hemispheres without evidence for acute ischemia. No intracranial mass or hemorrhage. Paranasal sinuses demonstrate mild left maxillary mucosal thickening. Orbital contents are unremarkable. IMPRESSION: NO ACUTE INTRACRANIAL ABNORMALITY. JOB [facility]BER: [id number] [facility]
--- NOTE | 2017-03-26 08:41 | RADIOLOGY REPORT ---
EXAM: CHEST 2 VIEWS HISTORY: RIGHT-SIDED PARESTHESIAS. HEADACHE AND WEAKNESS. TECHNIQUE: Chest, two views. COMPARISON: 01/02/17 FINDINGS: The heart is not enlarged. Lungs and pleural spaces are clear. IMPRESSION: NO ACUTE CARDIOPULMONARY ABNORMALITY. JOB NUMBER: [id number] [facility]
== END 2017-03-25 19:29 | disposition home or self-care (01) ==
LOC: ER 17:55
DX: G45.9 Transient cerebral ischemic attack, unspecified (principal); R51 Headache; Z86.73 Personal history of transient ischemic attack (TIA), and cerebral infarction without residual deficits
CPT/HCPCS: 70450; 71020; 80048; 80305; 80329; 81003; 84484; 85025; 85730; 93005; 93010; 99284

== ENCOUNTER 2017-03-31 00:15 | Emergency (ER) | payer BC ==
--- NOTE | 2017-03-31 00:54 | Emergency Department Record ---
History of Present Illness - General Chief complaint: Pain Stated complaint: R SIDED FACIAL PAIN Time Seen by Provider: 03/31/17 00:19 Source: Patient Mode of Arrival: Ambulatory Limitations: No limitations - History of Present Illness Initial comments: 51 yo male presents to ED for evaluation of right sided facial and dental pain symptoms for the past several days. Patient reports that his pain symptoms worsen when he eats. Patient was seen 5 days ago, diagnosed with "headache" and "possible TIA". Patient denies numbness, tingling, or weakness on examination. Patient denies dizziness or change in vision on examination. Patient does report a history of stroke in the past, but his symptoms were different than today's symptoms. Patient denies chest pain symptoms. Patient denies history of HTN, CAD, or DM. Patient believes that he may have a dental infection and would like an antibiotic for possible dental abscess. MD Complaint: Other (dental pain) Onset/Timin -: Days(s) Location: Right, Other History of Same: Yes Severity scale (1-10): 10 Consistency: Constant, Getting worse Improves with: Nothing - Related Data Previous Rx's Medication Instructions Recorded Albuterol Sulfate 0.083% [Neb] 2.5 mg INH RESP.Q2H PRN #120 neb 01/05/17 Ipratropium/Albuterol [Duoneb] 3 ml INH RESP.Q4H.WA #180 01/05/17 Pantoprazole Sodium 40 mg PO DAILY #30 tablet. 01/05/17 Sumatriptan Succinate [Imitrex] 25 mg PO ASDIR #20 tablet 01/05/17 Hydrocodone/Acetaminophen [[place] 1 each PO Q6HR #10 tablet 03/25/17 5-325 Tablet] Clindamycin HCl 300 mg PO Q6H #28 capsule 03/31/17 Allergies Allergy/AdvReac Type Severity Reaction Status Date / Time No Known Drug Allergies Allergy Verified 03/25/17 18:08 Travel Screening - Travel/Exposure Within Last 30 Days Have you traveled within the last 30 days?: No - Travel Symptoms Symptom Screening: None Review of Systems Constitutional: Denies: Chills, Fever, Malaise, Night sweats Eyes: Denies: Eye discharge, Eye pain ENT: Reports: Dental pain. Denies: Congestion, Ear pain Respiratory: Denies: Cough, Dyspnea Cardiovascular: Denies: Chest pain, Dyspnea on exertion Endocrine: Denies: Fatigue, Heat or cold intolerance Gastrointestinal: Denies: Abdominal pain, Nausea, Vomiting Genitourinary: Denies: Incontinence, Retention Musculoskeletal: Denies: Arthralgia, Back pain, Gout, Joint swelling Skin: Denies: Bruising, Change in color Neurological: Reports: Headache. Denies: Abnormal gait, Confusion, Numbness, Seizure, Vertigo, Weakness Psychiatric: Denies: Anxiety Hematological/Lymphatic: Denies: Anemia, Blood Clots Past Medical History - SOCIAL HISTORY Smoking Status: Never smoker - RESPIRATORY Hx Respiratory Disorders: No Hx Pneumonia: No (as an ) - CARDIOVASCULAR Hx Cardio Disorders: No Hx Chest Pain: Yes Hx Palpitations: Yes - NEURO Hx Neuro Disorders: Yes Hx Headaches: Yes (migraines) Hx TIA: Yes (x2 last 2015) - GI Hx GI Disorders: No - Hx Genitourinary Disorders: Yes Hx Kidney Stones: Yes - ENDOCRINE Hx Endocrine Disorders: No Hx Diabetes: No Hx Thyroid Disease: No - MUSCULOSKELETAL Hx Musculoskeletal Disorders: No - PSYCH Hx Psych Problems: Yes Hx Anxiety: Yes - HEMATOLOGY/ONCOLOGY Hx Hematology/Oncology Disorders: No Family Medical History Any Significant Family History?: Yes Hx Cancer: Grandparents Hx Heart Disease: Father, Grandparents Hx HTN: Father, Mother Hx Stroke: Mother Physical Exam - General General Appearance: Alert, Oriented x3, Cooperative, Mild distress Limitations: No limitations - Head Head exam: Atraumatic, Normocephalic, Normal inspection Head exam detail: negative: Abrasion, Contusion, Leon's sign, General tenderness, Hematoma, Laceration - Eye Eye exam: Normal appearance. negative: Conjunctival injection, Periorbital swelling, Periorbital tenderness, Scleral icterus - ENT Ear exam: negative: Auricular hematoma, Auricular trauma Nasal Exam: negative: Active bleeding, Discharge, Dried blood, Foreign body Mouth exam: negative: Drooling, Laceration, Muffled voice, Tongue elevation Teeth exam: Dental caries, Dental tenderness #. negative: Fractured tooth # Throat exam: negative: Tonsillomegaly, Tonsillar exudate, R peritonsillar mass, L peritonsillar mass Image of Mouth/Teeth: 1 - Dental tenderness on examination, no gingival abscess is present - Neck Neck exam: Normal inspection. negative: Meningismus, Tenderness - Respiratory Respiratory exam: Normal lung sounds bilaterally. negative: Rales, Respiratory distress, Rhonchi, Stridor - Cardiovascular Cardiovascular Exam: Regular rate, Normal rhythm, Normal heart sounds - GI/Abdominal GI/Abdominal exam: Soft. negative: Rebound, Rigid, Tenderness - Rectal Rectal exam: Deferred - exam: Deferred - Extremities Extremities exam: Normal inspection. negative: Calf tenderness, Pedal edema, Tenderness - Back Back exam: Denies: CVA tenderness (R), CVA tenderness (L) - Neurological Neurological exam: Alert, CN II-XII intact, Normal gait, Oriented X3. negative : Motor sensory deficit - Psychiatric Psychiatric exam: Normal affect, Normal mood - Skin Skin exam: Normal color. negative: Abrasion Type of lesion: negative: abrasion Course Vital Signs 03/31/17 00:23 Pulse Rate 88 Respiratory 20 Rate Blood Pressure 149/100 Pulse Ox 96 - Reevaluation(s) Reevaluation #1: 03/31/17 00:55 Patient has no clinical evidence for TIA or CVA on examination. Pain symptoms are isolated to the upper right dental region, and pain is reproducible on examination with palpation of the upper right dentition. Will treat for probable dental abscess with Clindamycin with instructions for dental follow-up in 1-3 days as directed. Disposition Disposition: Discharge Clinical Impression: Dental abscess Disposition: Home, Self-Care Condition: (2) Stable Instructions: Dental Abscess (ED) Additional Instructions: Return to ED if your symptoms worsen or if you have any concerns. Clindamycin as directed. Follow-up with your dentist in 1-3 days as directed. Prescriptions: Clindamycin HCl 300 mg PO Q6H #28 capsule Forms: Patient Portal Access Time of Disposition: 00:58 Quality - Quality Measures Quality Measures: N/A - Blood Pressure Screening Does Patient Have Any of the Following: No Blood Pressure Classification: Hypertensive Reading Systolic Measurement: 149 Diastolic Measurement: 100 Screening for High Blood Pressure: < First Hypertensive BP, F/U Documented > [ [id number]] First Hypertensive Follow-up Interventions: Referral to alternative/primary care provider.
[2017-03-31] MEDS ORDERED: HYDROCODONE/APAP 5/325MG TABLET PO ONE (00:58)
[2017-03-31] MEDS ORDERED: CLINDAMYCIN 150 MG CAP PO ONE (00:58)
== END 2017-03-31 01:15 | disposition home or self-care (01) ==
LOC: ER 00:15
DX: K04.7 Periapical abscess without sinus (principal)
CPT/HCPCS: 99282

== ENCOUNTER 2017-07-18 06:52 | Observation (INO) | payer BC | END 2017-07-18 07:06 | disposition home or self-care (01) | LOC: MEDSURG 06:52 | PROVIDERS: ADMIT Emergency Medicine; ATTEND Emergency Medicine | DX: Z01.89 Encounter for other specified special examinations (principal) ==

== ENCOUNTER 2017-07-18 07:05 | Observation (INO) | payer BC ==
[~2017-07-18 07:05] MED LIST: ASPIRIN 81 MG CHEWABLE TABLET PO ONE; KETOROLAC 30 MG/ML VIAL IVP ONE; LORAZEPAM 2 MG/ML VIAL IV ONE; NITROGLYCERIN 0.4MG SL TABLET #25 BTL SL ONE
[2017-07-18] MEDS ORDERED: AL HYDROX/MAG HYDROX 30ML UD PO PRN (07:33)
[2017-07-18] MEDS ORDERED: NITROGLYCERIN 0.4MG SL TABLET #25 BTL SL PRN (07:38)
[2017-07-18] MEDS ORDERED: 0.9 % SODIUM CHLORIDE 10ML SYR IVP SCH (07:45)
[2017-07-18] MEDS ORDERED: LORAZEPAM 2 MG/ML VIAL IV ONE (08:11)
[2017-07-18] MEDS ORDERED: KETOROLAC 30 MG/ML VIAL IVP ONE (08:11)
[2017-07-18 08:18] LABS: HEMATOCRIT 48.5 % (42.0-52.0); HEMOGLOBIN 16.4 gm/dl (14.0-18.0); MEAN CORPUSCULAR HGB CONC 33.8 g/dl (32-36); RED BLOOD COUNT 5.45 M/uL (4.40-5.70); WHITE BLOOD COUNT W/O DIFF 7.1 K/uL (4.2-12.2)
[2017-07-18 08:19] LABS: BASO % 0.6 % (0-6); EOS % 9.2 % (0-6); GRAN % 58.3 % (47-80); LYMPH % 23.8 % (16-45); MEAN PLATELET VOLUME 10.1 fl (7.4-10.4); MONO % 8.1 % (0-9); PLATELET COUNT 268 K/uL (130-400); RED CELL DISTRIBUTION WIDTH 13.3 % (11.5-14.5)
[2017-07-18 08:25] LABS: PARTIAL THROMBOPLASTIN TIME 31.3 SECONDS (24.5-39.1); PROTHROMBIN TIME (PATIENT) 10.6 SECONDS (9.5-12.1)
[2017-07-18 08:27] LABS: BLOOD UREA NITROGEN 11 mg/dL (6-20); CREATININE 1.1 mg/dL (0.7-1.2); EST GLOMERULAR FILTRATION RATE > 60 mL/min; GLUCOSE,RANDOM 104 mg/dL (74-109)
[2017-07-18 08:28] LABS: ALBUMIN 4.5 g/dL (4.0-5.0); TOTAL PROTEIN 7.1 g/dL (6.6-8.7)
[2017-07-18] MEDS ORDERED: MORPHINE SULFATE 4MG/ML PREFILLED SYRINGE IVP PRN (08:28)
[2017-07-18 08:30] LABS: ALKALINE PHOSPHATASE 92 U/L (40-129); ALT/SGPT 71 U/L (<41); AST/SGOT 34 U/L (10.0-50.0); CKMB 3.5 ng/mL (<6.73); CREATINE PHOSPHOKINASE 165 U/L (39-308)
[2017-07-18 08:31] LABS: NTpro B-NATRIURETIC PEPTIDE 17.68 pg/mL (<125)
[2017-07-18 08:46] LABS: BILIRUBIN,DIRECT < 0.2 mg/dL (0-0.3)
[2017-07-18] MEDS ORDERED: ASPIRIN 325 MG TAB ENTERIC-COATED PO SCH (10:00)
--- NOTE | 2017-07-18 10:50 | CT ANGIOGRAM REPORT ---
EXAM: CTA OF THE CHEST HISTORY: LEFT SIDED CHEST PAIN. TECHNIQUE: CTA of the chest was performed using pulmonary embolus protocol following IV administration of 82 ml of Omnipaque 350 contrast. Axial images are obtained with coronal and sagittal MIP reconstructions. Comparison: 01/02/17 CTA of the chest. FINDINGS: The mediastinal vasculature enhances normally. No intraluminal filling defect to suggest pulmonary embolus. Negative for thoracic aortic aneurysm or dissection. The heart and pericardium are unremarkable. Limited evaluation of the upper abdomen is unremarkable. Fatty infiltrative change to the liver is incidentally noted with post cholecystectomy change. The visualized airways are patent. The lungs are clear. No pneumothorax. IMPRESSION: NEGATIVE FOR AN ACUTE INTRATHORACIC PROCESS. JOB NUMBER: [id number] MTDD
[2017-07-18] MEDS ORDERED: ENOXAPARIN 40 MG/0.4 ML SYR SQ SCH (12:30)
--- NOTE | 2017-07-18 14:11 | History and Physical Report ---
DATE: 07/18/2017 CHIEF COMPLAINT: Chest pain worse since about 3:30 a.m. However, it has been on and off for 3 days. Recently came back from [place]. He also states that pain goes into the left arm and he does have a cough. In the emergency department he had chest CTA which was negative for PE. EKG showing no acute changes. Cardiac enzymes were negative, first set. The computer went down so we do not have it in our chart. Dr. Tracy just called me and said that he has a swollen leg and wanted venous Doppler done. We will order that. PAST MEDICAL HISTORY: TIA. He says he had a blood clot in his lung but he is no longer on Coumadin. He has an occasional flutter in his chest. He also has chronic bronchitis, history of migraines, TIAs x2 with the last one in 2014, history of kidney stones, low back pain, degenerative disc disease, anxiety. PAST SURGICAL HISTORY: Cholecystectomy, appendectomy, vasectomy, hernia repair, tonsillectomy. MEDICATIONS: None. ALLERGIES: None. FAMILY/PSYCHOSOCIAL HISTORY: Grandparents had cancer. Heart disease in the father and grandparents. Hypertension with the father and mother. Stroke with the mother. He has never smoked. No drugs. Rare use of beer. REVIEW OF SYSTEMS: HEENT: No sore throat, no congestion. Cardiovascular: See Chief Complaint. Chest pain. Respiratory: He has a cough. No sputum. Gastrointestinal: No nausea, vomiting, diarrhea, black stools, or bloody stools. Genitourinary: No dysuria, hematuria, frequency, or burning on urination. Musculoskeletal: No joint or bone abnormalities. Neurological: No CVA, paralysis, or paresthesias at this time. Endocrine: No diabetes or thyroid disease. Integument: No rash, ulcers, change in moles, or yellow skin. PHYSICAL EXAMINATION: VITALS: Height 5 feet 11 inches, weight 304 pounds. Temperature 97.8, pulse 69, blood pressure 120/68, respiratory rate 18, pulse ox 97% on room air. HEENT: Pupils are equal, round, and reactive to light and accommodation. Extraocular muscles are intact. Throat is clear. Nose is clear. Tympanic membranes are gonzalez. NECK: Supple. No jugular venous distention. No hepatojugular reflux. No carotid bruits. Thyroid is smooth. CARDIOVASCULAR: Regular rate and rhythm without murmurs, clicks, rubs, or gallops. RESPIRATORY: Clear to auscultation. Breath sounds equal bilaterally. ABDOMEN: Soft, nontender. No hepatosplenomegaly, no tenderness. Bowel sounds are active. No bruits. EXTREMITIES: Some swelling. BREASTS: Normal male breasts. RECTAL: Deferred. GENITALIA: Deferred. NEUROLOGIC: Cranial nerves II-XII intact. No gross defects. Sensation normal, strength normal. Deep tendon reflexes equal bilaterally with Babinski negative. MENTAL STATUS: Alert and oriented x3. IMPRESSION: 1. Chest pain. 2. Cough. 3. Palpitations. PLAN: Toradol 30 mg IV, Ativan 1 mg IV. Cardiology consult. We will also order venous Doppler after checking which leg is swollen. MTDD
--- NOTE | 2017-07-18 17:46 | Discharge Note ---
VTE H&P Assessment - Risk for VTE Risk for VTE: Yes Risk Level: Low Risk Assessment Date: 07/18/17 Risk Assessment Time: 09:00 VTE Orders Placed or Will Be Placed: Yes Discharge Medications - Discharge Medications Prescriptions: Hydroxyzine Pamoate [Vistaril] 25 mg PO Q6H #10 capsule Naproxen [Naprosyn] 500 mg PO Q12H #20 tab. Home Medications: Ambulatory Orders Hydroxyzine Pamoate [Vistaril] 25 mg PO Q6H #10 capsule 07/18/17 [Last Taken Unknown] Naproxen [Naprosyn] 500 mg PO Q12H #20 tab. 07/18/17 [Last Taken Unknown] Discharge Note - Date Date of Discharge Note: 07/18/17 Disposition: Home, Self-Care Condition: (2) Stable Additional Instructions: follow up with dr. Crenshaw for outpatient cardiac stress testing use naprosyn 500 mg twice a day use vistaril 25 mg every 6 hours for anxiety as needed. do not drive for 8 hours after taking this medication Activity at Discharge: Increase Activity as Tolerated Diet at Discharge: Regular Diet
[2017-07-18] MEDS ORDERED: NAPROXEN 250 MG TABLET PO ONE (17:50)
[2017-07-18] MEDS ORDERED: HYDROXYZINE PAMOATE 25 MG CAPSULE PO ONE (17:50)
--- NOTE | 2017-07-19 07:36 | US VENOUS DOPPLER REPORT ---
EXAM: BILATERAL LOWER EXTREMITY DUPLEX VENOUS ULTRASOUND HISTORY: PAIN. TECHNIQUE: Bilateral lower extremity Duplex venous ultrasound was obtained. Comparison: 01/03/17 ultrasound. FINDINGS: Doppler and spectral analysis with color flow was utilized. Normal waveforms bilaterally. There is no visible areas of thrombus formation. Normal compression and augmentation to the deep venous system of both lower extremities, however, there is left lower extremity soft tissue swelling and edema. IMPRESSION: NEGATIVE FOR DVT. LEFT LOWER EXTREMITY SOFT TISSUE SWELLING AND EDEMA. JOB NUMBER: [id number] [facility]
--- NOTE | 2017-07-19 12:30 | Discharge Summary ---
DATE: 07/18/2017 at 5:54 p.m. DISCHARGE DIAGNOSES: 1. Chest pain, atypical. 2. Anxiety. 3. Palpitations. ATTENDING PHYSICIAN: Tai Chávez DO REASON FOR HOSPITALIZATION: Chest pain, worse about 3 a.m. However, it has been on and off for 3 days. Recently came back from [place]. He also states the pain goes into the left arm. He does have a cough. In the emergency department, he had chest CTA which was negative for PE. EKG showed no acute changes. Cardiac enzymes were negative, first set. Dr. Tracy called me and was concerned about his swollen legs and wanted venous Dopplers done. We ordered bilateral venous Dopplers. Both legs are swollen, the left more than the right but only slightly swollen. The patient was also admitted for cardiology consult. SIGNIFICANT FINDINGS: As stated, CTA of the chest was negative for PE. Bilateral venous Dopplers were negative for DVTs. WBC 7800, hemoglobin 16.4, PT/INR were good, potassium 4.5, BUN 11, creatinine 1.1, ALT slightly elevated at 71. CK-MB was negative at 2 time points. Troponin T was negative at 2 time points. Cardiology consult with Dr. Crenshaw, felt he could safely go home and do an outpatient stress test because he has atypical chest pain, no signs of an AK. Anxiety and palpitations. Will set that up as an outpatient today, Cardiolite stress test in [place]. The patient said he wants to follow up with the primary doctor his is going to be going to, which I believe is the [place] practice here at [facility]. On discharge, because of his pain, we will give him Naprosyn 500 mg b.i.d., 20 pills, and Vistaril for his anxiety 25 mg q.6 h. p.r.n. CC: Dr. BUSBY
--- NOTE | 2017-07-19 19:27 | Medical Records Consult ---
DATE: 07/18/17 Mr. Chaney is 51 years old with presentation to [facility] with substernal chest pain. He states he was having on and off substernal chest pressure for the last few days. He denies it occurs with exertional activity. Currently, he states he chest pressure is completely resolved. He does have history of anxiety and believes that this may have been an anxiety attack. Mr. Chaney moved from [place], [place] to the local area in November of 2016. He states he has a history of pulmonary embolism and was once treated with tPA. He also states he has had a couple of TIA's, the last one being in 2014. PAST MEDICAL HISTORY: He has history of migraines, chronic bronchitis, kidney stones, degenerative disc disease, and anxiety. PAST SURGICAL HISTORY: Includes cholecystectomy, appendectomy, vasectomy, hernia repair, and tonsillectomy. MEDICATIONS: He states none. ALLERGIES: NONE. SOCIAL HISTORY: He is and just moved to the local area in the past year. He denies any active work. He himself denies tobacco or alcohol use. He drinks one beer per month. FAMILY HISTORY: His father had an IL in his late 30's. He states his mother had multiple strokes. PHYSICAL EXAM: GENERAL: He is afebrile. VITAL SIGNS: Stable. LUNGS: Clear. CARDIAC: Cardiac exam was normal. ABDOMEN: Obese. EXTREMITIES: Extremities reveal no edema. LABORATORY: His laboratory profile includes a white count of 7.1. Hemoglobin 16.4. Platelets 268,000. Sodium 143. Potassium 4.5. BUN 11. Creatinine 1.1. Troponins were negative. ECG demonstrates sinus rhythm with no significant ST/T abnormalities. IMPRESSION/PLAN: Mr. Chaney presented to [facility] with substernal chest pressure. Due to his history of pulmonary embolism, he had a chest CT and venous duplex performed, which were negative. His troponins and ECG are within normal limits. He is currently chest pain free. Mr. Chaney would like to be discharged for outpatient follow-up. I did offer him doing a stress Cardiolite during his inpatient admission but he prefers to do it outpatient. We will schedule a two-day Lexiscan stress Cardiolite due to obesity and follow-up in our office within one week. Thank you for this consultation. JOB NUMBER: [id number] [facility]
== END 2017-07-18 18:18 | disposition home or self-care (01) ==
LOC: ER 07:05 → MEDSURG 07:15
PROVIDERS: ADMIT Emergency Medicine; ATTEND Emergency Medicine
DX: R07.9 Chest pain, unspecified (principal); R05 Cough; R00.2 Palpitations; M51.36 Other intervertebral disc degeneration, lumbar region; Z86.73 Personal history of transient ischemic attack (TIA), and cerebral infarction without residual deficits; Z86.711 Personal history of pulmonary embolism; Z87.442 Personal history of urinary calculi
CPT/HCPCS: 99285 ×2; 96374; 96375; 82550; 85025; 85730; 85610; 80076; 82553; 80048; 84484; 83880; 93970; 71275; 93005; 93010; G0378; Q9967; J1885; J2060; 99220; J1650

== ENCOUNTER 2017-10-31 15:14 | Emergency (ER) | payer BC ==
--- NOTE | 2017-10-31 15:24 | Emergency Department Record ---
History of Present Illness - General Chief Complaint: Fall Injury Stated Complaint: FALL Time Seen by Provider: 10/31/17 15:23 Source: Patient Mode of Arrival: Ambulatory Limitations: No limitations - History of Present Illness Initial Comments: 52 yo male presents after a fall at 8am at work. He works for [employer] and was checking a gas main. He slipped in a ditch. He hit his head and neck. No LOC. No other injuries. No chest, abdominal or extremity injuries other than mild shoulder pain. He has had chronic neck pain with recent Xr's with his PCP. He has known degenerative spine issues. He continued to work all day. The pain has gradually increased. MD Complaint: Fall Onset/Timin -: Hour(s) Fall From: Other When Fall Occurred: Just prior to arrival Fall Witnessed: No Place Fall Occurred: Work Loss of Consciousness: None Prolonged Down Time?: No Symptoms Prior to Fall: None Location: Head, Back Severity scale (1-10): 10 Quality: Other Context: Tripped/slipped Associated Symptoms: Lightheaded - [place] Coma Scale Eye Response: (4) Open spontaneously Verbal Response: (5) Oriented - Related Data Previous Rx's Medication Instructions Recorded Hydrocodone/Acetaminophen [Neoga 1 each PO Q6H PRN #8 tablet 10/31/17 7.5-325 Tablet] Allergies Allergy/AdvReac Type Severity Reaction Status Date / Time No Known Drug Allergies Allergy Unverified 10/11/17 15:53 Travel Screening - Travel/Exposure Within Last 30 Days Have you traveled within the last 30 days?: No Review of Systems Constitutional: Denies: Chills, Fever, Malaise, Weakness Eyes: Denies: Eye discharge ENT: Denies: Congestion, Throat pain Respiratory: Denies: Cough Cardiovascular: Denies: Chest pain, Syncope Endocrine: Denies: Fatigue Gastrointestinal: Denies: Abdominal pain, Diarrhea, Nausea, Vomiting Genitourinary: Denies: Dysuria, Frequency, Hematuria Musculoskeletal: Reports: Myalgia. Denies: Arthralgia, Back pain, Joint swelling Skin: Denies: Bruising, Change in color, Rash Neurological: Reports: Headache, Tingling (he chronically occasionally gets finger tingling over the last several months). Denies: Abnormal gait, Confusion , Numbness, Paresthesias, Seizure, Tremors, Vertigo, Weakness Past Medical History - SOCIAL HISTORY Smoking Status: Never smoker Alcohol Use: None Drug Use: None - RESPIRATORY Hx Respiratory Disorders: Yes Hx Asthma: No Hx Bronchitis: Yes (2017) Hx COPD: No Hx Dyspnea: No Hx Pneumonia: Yes (as an infant) Hx Pulmonary Embolism: No Hx Sleep Apnea: No Hx Tuberculosis: No Hx of CPAP: No - CARDIOVASCULAR Hx Cardio Disorders: Yes Hx Abnormal EKG: No Hx Cardiac Cath: No Hx Chest Pain: Yes Hx CHF: No Hx Deep Vein Thrombosis: No Hx Edema: Yes Hx Heart Attack: No Hx Hypertension: No Hx Hypotension: No Hx Irregular Heartbeat: No Hx Palpitations: Yes Hx Pacemaker/Defib: No Hx Vascular Disease: No - NEURO Hx Neuro Disorders: Yes Hx Brain Tumor: No Hx CVA: No Hx Dementia: No Hx Dizziness: No Hx Headaches: Yes (migraines) Hx Neuropathy: No Hx Parkinson's Disease: No Hx Seizures: No Hx Speech Problem: No Hx TIA: Yes (x2 last 2014) - GI Hx GI Disorders: No - Hx Genitourinary Disorders: Yes Hx Bladder Problem: No Hx Dialysis: No Hx Kidney Stones: Yes Hx Prostate Problems: No Hx Renal Disease: No Hx UTI: No - ENDOCRINE Hx Endocrine Disorders: No Hx Diabetes: No Hx Thyroid Disease: No - MUSCULOSKELETAL Hx Musculoskeletal Disorders: No Hx Arthritis: No Hx Back Injury: No Hx Fibromyalgia: No Hx Gout: No Hx Musculoskeletal Disease: No Hx Osteoporosis: No - PSYCH Hx Psych Problems: Yes Hx Anxiety: Yes Hx Behavior Problems: No Hx Depression: No Hx Emotional Abuse: No Hx Sexual Abuse: No Hx Suicide Attempt: No - HEMATOLOGY/ONCOLOGY Hx Hematology/Oncology Disorders: No Family Medical History Any Significant Family History?: Yes Hx Cancer: Grandparents Hx Heart Disease: Father, Grandparents Hx HTN: Father, Mother Hx Stroke: Mother Physical Exam - General General Appearance: Alert, Oriented x3, Cooperative, No acute distress Limitations: No limitations - Head Head exam: Atraumatic, Normocephalic, Normal inspection - Eye Eye exam: Normal appearance. negative: Conjunctival injection, Scleral icterus - ENT ENT exam: Normal exam, Mucous membranes moist Ear exam: Normal external inspection Nasal Exam: Normal inspection Mouth exam: Normal external inspection Teeth exam: Normal inspection Throat exam: Normal inspection - Neck Neck exam: Normal inspection, Full ROM, Tenderness - Respiratory Respiratory exam: Normal lung sounds bilaterally. negative: Respiratory distress - Cardiovascular Cardiovascular Exam: Regular rate, Normal rhythm, Normal heart sounds - GI/Abdominal GI/Abdominal exam: Soft. negative: Tenderness - Rectal Rectal exam: Deferred - exam: Deferred - Extremities Extremities exam: Normal inspection, Full ROM, Normal capillary refill. negative: Calf tenderness, Joint swelling, Pedal edema, Tenderness Image of Full Body: 1 - tender to palpation, normal inspeciton, no step off - Back Back exam: Reports: Full ROM, Paraspinal tenderness, Tenderness, Vertebral tenderness. Denies: CVA tenderness (R), CVA tenderness (L) - Neurological Neurological exam: Alert, CN II-XII intact, Normal gait, Oriented X3, Reflexes normal, Other ([employer], biceps and triceps full strength, sensation is intact). negative: Abnormal gait, Altered, Motor sensory deficit - Psychiatric Psychiatric exam: Normal affect, Normal mood. negative: Agitated, Anxious - Skin Skin exam: Dry, Intact, Normal color, Warm Course Vital Signs 10/31/17 15:20 Temperature 97.8 F Pulse Rate [ 88 Pulse Ox Probe] Respiratory 20 Rate Blood Pressure 147/98 [Left Arm] Pulse Ox 97 - Reevaluation(s) Reevaluation #1: Well appearing Motor and sensory examination intact No blood thinners Given the headache, neck pain CT ordered. 10/31/17 15:34 10/31/17 16:33 The HCT was read as no acute process or injury. 10/31/17 16:38 The Radiologist called. No fracture on the C spine but there is motion artifact on T1-C7 and requests this area be re-scanned 10/31/17 17:02 T Spine was read as degenerative changes no acute fracture 10/31/17 17:[address] of the area of artifact was negative We discussed the results, need for close followup and reasons to return to the ED. Disposition Disposition: Discharge Clinical Impression: Contusion of head Qualifiers: Encounter type: initial encounter Contusion of head detail: unspecified part of head Qualified Code(s): S00.93XA - Contusion of unspecified part of head, initial encounter Neck strain Qualifiers: Encounter type: initial encounter Qualified Code(s): S16.1XXA - Strain of muscle, fascia and tendon at neck level, initial encounter Disposition: Home, Self-Care Condition: (1) Good Instructions: Cervical Strain (ED), Concussion (ED) Additional Instructions: Rest the next 1-2 days avoiding lifting or over activity Call your doctor for a recheck in the next week to review the ER visit and the test results Return immediately if you have any new pain, uncontrolled pain or any new symptoms or concerns Prescriptions: Hydrocodone/Acetaminophen [Neoga 7.5-325 Tablet] 1 each PO Q6H PRN #8 tablet PRN Reason: Pain - Mild (1-4) Forms: Patient Portal Access Time of Disposition: 17:59 Quality - Quality Measures Quality Measures: N/A, Blunt Head Trauma (>2yr) - [place] Coma Scale April Coma Scale: [place] Coma Scale Eye Response: (4) Open spontaneously Motor Response: (6) Obeys commands Verbal Response: (5) Oriented [place] Total: 15 - Blunt Head Trauma - Adult Quality Measure: Measure #415: Utilization of CT for Minor Blunt Head Trauma ICD10 Codes Entered: Yes Was CT ordered: Yes Does Patient Have Any of the Following: No Exclusions Patient Presented Within 24 Hours of Injury: Yes April Score: [address] for Minor Blunt Head Trauma: < CT Done, Appropriate Indication > [G9529] Additional Inclusion Criteria: Within 24hrs (AND) GCS of 15 (AND) CT ordered. [ G9530] Indications For CT: Dangerous Mechanism of Injury - Blood Pressure Screening Does Patient Have Any of the Following: No Blood Pressure Classification: Normal BP Reading Systolic Measurement: 110 Diastolic Measurement: 69 Screening for High Blood Pressure: < Normal BP, F/U Not Required > [G8783]
[2017-10-31] MEDS ORDERED: HYDROCODONE/APAP 7.5/325MG TABLET PO ONE (15:29)
[2017-10-31] MEDS ORDERED: ONDANSETRON 4 MG ODT TABLET SL ONE (16:01)
[2017-10-31] MEDS ORDERED: DIAZEPAM 5 MG TABLET PO ONE (16:40)
[2017-10-31] MEDS ORDERED: KETOROLAC 30 MG/ML VIAL IM ONE (16:40)
--- NOTE | 2017-11-02 13:14 | CT SCAN REPORT ---
DATE: 10/31/2017. EXAM: NONCONTRAST CT OF THE BRAIN. HISTORY: The patient fell and hit head. TECHNIQUE: Standard axial technique without intravenous contrast with coronal and sagittal postprocessed images. COMPARISON: 03/25/2017. HANDEDNESS: Unknown. ENCOUNTER: Initial. FINDINGS: The subcutaneous tissues display no evidence of significant soft tissue swelling or large hematoma. Focal nodular area on the left posterior base of the scalp in the suboccipital region is seen with some mild surrounding inflammation which may represent a small, infected skin lesion such as a small, infected sebaceous cyst, epidermoid inclusion cyst, or other small skin lesion. This was also present in February without much change. There is a prominent area of mucosal thickening or polypoid change within the left maxillary sinus. The bony structures display the remaining sinuses to be grossly clear. There is likely prominent cerumen in the bilateral external auditory canals. I do not see evidence of skull fracture. The brain displays no evidence of abnormal extra-axial fluid collections to suggest hemorrhage. Basal cisterns appear intact. There is no evidence of intraparenchymal hemorrhage, intraventricular blood, or subarachnoid blood. No mass, mass effect, or midline shift is identified. The sulci and gonzalez-white junction appear intact. No cortical edema. IMPRESSION: 1. NO ACUTE INTRACRANIAL PROCESS. 2. MILD CHRONIC CHANGES DISCUSSED ABOVE WITH A SMALL LEFT POSTERIOR SUBOCCIPITAL SCALP LESION AND LEFT MAXILLARY SINUS MUCOSAL THICKENING OR POLYP. JOB NUMBER: [id number] [facility]
--- NOTE | 2017-11-02 13:25 | CT SCAN REPORT ---
DATE: 10/31/2017. EXAM: CT OF THE CERVICAL SPINE. HISTORY: Fall, injury. TECHNIQUE: Standard axial CT of the cervical spine without intravenous contrast was obtained with coronal and sagittal postprocessed images. ENCOUNTER: Initial. COMPARISON: 10/11/2017. FINDINGS: I do not see prevertebral soft tissue swelling. The C1 ring appears intact. The C2 ring appears intact. There is motion artifact in the region of C7 causing stepoff deformity. This limits evaluation for subtle fracture. I do not see otherwise wedge compression deformity. No abnormal subluxation. Moderate degenerative changes are seen at C3-C4 with lesser changes throughout. Generalized facet arthropathy is identified. The coronal images display no evidence of displacement of the lateral masses or dense fracture. The axial images display no evidence of lamina or pedicle fracture. The surrounding soft tissues display scattered small, likely reactive lymph nodes. The upper lung zarate are without evidence of pneumothorax. Note is made of severe multiple areas of dental caries within the visualized teeth. IMPRESSION: 1. THERE IS MOTION ARTIFACT AT C7. THIS CAUSES SOME STEPOFF DEFORMITY LIMITING EVALUATION FOR SUBTLE FRACTURE WITHIN THE BODY AND THE POSTERIOR ELEMENTS. IF THERE IS SPECIFIC PAIN IN THIS REGION, REPEATING CT OF JUST THIS LEVEL OR CERVICAL SPINE SERIES COULD BE CONSIDERED. 2. THE REMAINING CERVICAL SPINE DISPLAYS DEGENERATIVE DISEASE AND FACET ARTHROPATHY. NO FRACTURE, DISLOCATION, OR BONY DESTRUCTIVE PROCESS. 3. SEVERE DENTAL CARIES. JOB NUMBER: [id number] [facility]
--- NOTE | 2017-11-02 13:29 | RADIOLOGY REPORT ---
DATE: 10/31/2017. EXAM: THORACIC SPINE SERIES. HISTORY: Injury. The patient fell. TECHNIQUE: Frontal and latera views. COMPARISON: None. ENCOUNTER: Initial. FINDINGS: I do not see evidence of pedicle destruction. No evidence of endplate erosive changes. The cervical, thoracic, and thoracolumbar junction appears grossly intact. On the lateral view, there is mild degenerative disease. I do not see definitive wedge compression fracture. The adjacent ribs and visualized lung zarate appear intact. IMPRESSION: MILD DEGENERATIVE DISEASE. NO EVIDENCE OF FRACTURE. JOB NUMBER: [id number] [facility]
== END 2017-10-31 18:13 | disposition home or self-care (01) ==
LOC: ER 15:14
DX: S00.93XA Contusion of unspecified part of head, initial encounter (principal); S16.1XXA Strain of muscle, fascia and tendon at neck level, initial encounter; M54.6 Pain in thoracic spine; R42 Dizziness and giddiness; W01.198A Fall on same level from slipping, tripping and stumbling with subsequent striking against other object, initial encounter; Y99.0 Civilian activity done for income or pay
CPT/HCPCS: 70450; 72072; 72125; 96372; 99283; 99284; J1885

== ENCOUNTER 2018-04-04 14:08 | Emergency (ER) | payer BC ==
[2018-04-04] MEDS: KETOROLAC 30 MG/ML VIAL IVP ONE (14:37)
[2018-04-04] MEDS: 0.9 % SODIUM CHLORIDE 1,000 ML BAG IV ONE (14:37)
[2018-04-04] MEDS: ONDANSETRON HCL IV 4 MG/2 ML VIAL IV ONE (14:37)
--- NOTE | 2018-04-04 14:39 | Emergency Department Record ---
History of Present Illness - General Chief Complaint: Abdominal Pain Stated Complaint: LT SIDE ABDOMINAL PAIN Time Seen by Provider: 04/04/18 14:25 Source: Patient Mode of Arrival: Ambulatory Limitations: No limitations - History of Present Illness Initial Comments: The patient is here due to a 2 week hx of L flank pain. The pain is sharp and stabbing and intermittent. Today it is worse than it has been and is radiating to his back. The patient has had surgery in that area in the past due to an abdominal wall hernia. He has been mildly nauseated but has not vomited. The patient does have a hx of a kidney stone on the R side in the past. MD Complaint: Flank pain Onset/Timin -: Week(s) Location: L Flank Radiation: Back Severity: Moderate Severity scale (1-10): 8 Quality: Burning, Sharp Consistency: Constant Improves With: Nothing Worsens With: Eating Associated Symptoms: Chills, Fever, Nausea - Related Data Previous Rx's Medication Instructions Recorded Naproxen [Naprosyn] 500 mg PO BID #14 tablet. 04/04/18 Allergies Allergy/AdvReac Type Severity Reaction Status Date / Time No Known Drug Allergies Allergy Verified 04/04/18 14:30 Travel Screening - Travel/Exposure Within Last 30 Days Have you traveled within the last 30 days?: No - Travel/Exposure Within Last Year Have you traveled outside the [place] in the last year?: No - Additonal Travel Details Have you been exposed to anyone with a communicable illness?: No - Travel Symptoms Symptom Screening: Fever (Subjective), Stomach Pain, Chills Review of Systems Constitutional: Denies: Chills, Fever Eyes: Denies: Eye discharge ENT: Denies: Congestion Respiratory: Denies: Cough, Dyspnea Cardiovascular: Denies: Arrhythmia Endocrine: Denies: Fatigue Gastrointestinal: Reports: Abdominal pain, Nausea. Denies: Diarrhea, Vomiting Genitourinary: Denies: Hematuria Musculoskeletal: Denies: Arthralgia Skin: Denies: Bruising Past Medical History - SOCIAL HISTORY Smoking Status: Never smoker Alcohol Use: Occasional Drug Use: None - RESPIRATORY Hx Respiratory Disorders: Yes Hx Asthma: No Hx Bronchitis: Yes (2017) Hx COPD: No Hx Dyspnea: No Hx Pneumonia: Yes (as an infant) Hx Pulmonary Embolism: No Hx Sleep Apnea: No Hx Tuberculosis: No Hx of CPAP: No - CARDIOVASCULAR Hx Cardio Disorders: Yes Hx Abnormal EKG: No Hx Cardiac Cath: No Hx Chest Pain: Yes Hx CHF: No Hx Deep Vein Thrombosis: No Hx Edema: Yes Hx Heart Attack: No Hx Hypertension: No Hx Hypotension: No Hx Irregular Heartbeat: No Hx Palpitations: Yes Hx Pacemaker/Defib: No Hx Vascular Disease: No - NEURO Hx Neuro Disorders: Yes Hx Brain Tumor: No Hx CVA: No Hx Dementia: No Hx Dizziness: No Hx Headaches: Yes (migraines) Hx Neuropathy: No Hx Parkinson's Disease: No Hx Seizures: No Hx Speech Problem: No Hx TIA: Yes (x2 last 2014) - GI Hx GI Disorders: No - Hx Genitourinary Disorders: Yes Hx Bladder Problem: No Hx Dialysis: No Hx Kidney Stones: Yes Hx Prostate Problems: No Hx Renal Disease: No Hx UTI: No - ENDOCRINE Hx Endocrine Disorders: No Hx Diabetes: No Hx Thyroid Disease: No - MUSCULOSKELETAL Hx Musculoskeletal Disorders: No Hx Arthritis: No Hx Back Injury: No Hx Fibromyalgia: No Hx Gout: No Hx Musculoskeletal Disease: No Hx Osteoporosis: No - PSYCH Hx Psych Problems: Yes Hx Anxiety: Yes Hx Behavior Problems: No Hx Depression: No Hx Emotional Abuse: No Hx Sexual Abuse: No Hx Suicide Attempt: No - HEMATOLOGY/ONCOLOGY Hx Hematology/Oncology Disorders: No Family Medical History Any Significant Family History?: Yes Hx Cancer: Grandparents Hx Heart Disease: Father, Grandparents Hx HTN: Father, Mother Hx Stroke: Mother Physical Exam - General General Appearance: Alert, Oriented x3, Cooperative, No acute distress - Head Head exam: Atraumatic, Normocephalic, Normal inspection - Eye Eye exam: Normal appearance, PERRL, EOMI - Neck Neck exam: Normal inspection, Full ROM. negative: Tenderness - Respiratory Respiratory exam: Normal lung sounds bilaterally. negative: Respiratory distress - Cardiovascular Cardiovascular Exam: Regular rate, Normal rhythm, Normal heart sounds - GI/Abdominal GI/Abdominal exam: Soft, Tenderness (There is LLQ tenderness to palpation but no swelling, bruising, or erythema is appreciated.). negative: Distended, Rebound, Rigid - Extremities Extremities exam: Normal inspection, Full ROM, Normal capillary refill. negative: Tenderness - Neurological Neurological exam: Alert. negative: Motor sensory deficit Course Vital Signs 04/04/18 14:18 Temperature 97.9 F Pulse Rate 87 Respiratory 14 Rate Blood Pressure 142/76 Pulse Ox 97 - Reevaluation(s) Reevaluation #1: The patient is still having some pain in the LLQ. I did discuss the normal lab tests with him and the need for F/U. I also did discuss the fact that we did not find any stone, hydro, or diverticulitis. 04/04/18 15:34 Reevaluation #2: The patient is doing much better at this time. He is resting comfortably and is ready for home. 04/04/18 15:54 Medical Decision Making - Data Complexity MDM Data: Labs Ordered and/or Reviewed, X-Ray Ordered and/or Reviewed - Lab Data Result diagrams: 04/04/18 14:20 04/04/18 14:20 - Radiology Data Radiology results: Report reviewed (Abd CT: Neg for any acute changes per Rad. Neg stone, hydro, diverticulitis.) Disposition Disposition: Discharge Clinical Impression: Abdominal pain Qualifiers: Abdominal location: lower abdomen, unspecified Qualified Code(s): R10.30 - Lower abdominal pain, unspecified Disposition: Home, Self-Care Condition: (2) Stable Instructions: Abdominal Pain (ED) Additional Instructions: Please take the Naprosyn as directed and please see your family doctor for recheck. Return to the ER for any worsening symptoms. Prescriptions: Naproxen [Naprosyn] 500 mg PO BID #14 tablet.dr Forms: Patient Portal Access Time of Disposition: 15:55 Quality - Quality Measures Quality Measures: N/A - Blood Pressure Screening View Details: Yes Does Patient Have Any of the Following: No Blood Pressure Classification: Hypertensive Reading Systolic Measurement: 142 Diastolic Measurement: 76 Screening for High Blood Pressure: < First Hypertensive BP, F/U Documented > [ G8950] First Hypertensive Follow-up Interventions: Referral to alternative/primary care provider.
[2018-04-04 14:42] LABS: URINE APPEARANCE CLEAR; URINE BILIRUBIN NEGATIVE (NEGATIVE); URINE BLOOD NEGATIVE (NEGATIVE); URINE COLOR YELLOW; URINE GLUCOSE (UA) NEGATIVE (NEGATIVE); URINE KETONE NEGATIVE (NEGATIVE); URINE LEUKOCYTE ESTERASE NEGATIVE (NEGATIVE); URINE NITRITE NEGATIVE (NEGATIVE); URINE PROTEIN NEGATIVE (NEGATIVE); URINE UROBILINOGEN 0.2 E.U./dL (0.20 - 1.00)
[2018-04-04 14:43] LABS: BASO % 0.6 % (0-6); EOS % 7.1 % (0-6); GRAN % 63.8 % (47-80); HEMATOCRIT 48.5 % (42.0-52.0); HEMOGLOBIN 16.8 gm/dl (14.0-18.0); LYMPH % 19.9 % (16-45); MEAN CELL VOLUME 88.8 fl (81-97); MEAN CORPUSCULAR HEMOGLOBIN 30.8 pg (27-33); MEAN CORPUSCULAR HGB CONC 34.6 g/dl (32-36); MEAN PLATELET VOLUME 10.2 fl (7.4-10.4); MONO % 8.6 % (0-9); PLATELET COUNT 269 K/uL (130-400); RED BLOOD COUNT 5.46 M/uL (4.40-5.70); RED CELL DISTRIBUTION WIDTH 13.3 % (11.5-14.5); WHITE BLOOD COUNT W/O DIFF 7.2 K/uL (4.2-12.2)
[2018-04-04 14:55] LABS: BLOOD UREA NITROGEN 14 mg/dL (6-20); EST GLOMERULAR FILTRATION RATE > 60 mL/min
[2018-04-04 14:58] LABS: GLUCOSE,RANDOM 96 mg/dL (74-109)
[2018-04-04 15:24] LABS: TOTAL PROTEIN 7.3 g/dL (6.6-8.7)
[2018-04-04 15:29] LABS: ALBUMIN 4.5 g/dL (4.0-5.0); ALKALINE PHOSPHATASE 98 U/L (55-149); ALT/SGPT 62 U/L (<41); AST/SGOT 33 U/L (10.0-50.0)
[2018-04-04 15:30] LABS: BILIRUBIN,DIRECT < 0.2 mg/dL (0-0.3)
[2018-04-04] MEDS: HYDROMORPHONE HCL 2 MG/ML VIAL IVP ONE (15:40)
--- NOTE | 2018-04-05 10:04 | CT SCAN REPORT ---
EXAM: CT OF THE ABDOMEN AND PELVIS WITHOUT CONTRAST HISTORY: LEFT LOWER QUADRANT PAIN. TECHNIQUE: Sequential axial images were obtained from the diaphragms through the ischiorectal fossa without intravenous or oral contrast administration. Sagittal and coronal reformatted images were performed. FINDINGS: The visualized lung bases appear normal. The nonopacified liver appears normal. The gallbladder is surgically removed. The pancreas and spleen appear normal. The adrenal glands appear normal. There are cystic lesions in both kidneys incompletely evaluated on this examination. There is a nonobstructing calculus in the right kidney measuring [address] findings suggestive of obstructive uropathy. The small bowel appears normal. The urinary bladder appears normal. The prostate gland appears grossly unremarkable. The colon appears normal. IMPRESSION: NO ACUTE ABDOMINAL OR PELVIC DISEASE PROCESS. NONOBSTRUCTING CALCULUS IN THE RIGHT KIDNEY. NO CT FINDINGS SUGGESTIVE OF OBSTRUCTIVE UROPATHY. THERE ARE CYSTIC LESIONS IN BOTH KIDNEYS WHICH ARE INCOMPLETELY EVALUATED ON THIS EXAMINATION. JOB NUMBER: [id number] [facility]
== END 2018-04-04 16:26 | disposition home or self-care (01) ==
LOC: ER 14:08
DX: R10.32 Left lower quadrant pain (principal); R11.0 Nausea; Z87.442 Personal history of urinary calculi
CPT/HCPCS: 99284 ×2; 96374; 96375; 85025; 80076; 80048; 81003; 74176; J1885; J2405; J1170; J7030

== ENCOUNTER 2018-06-17 11:51 | Emergency (ER) | payer BC ==
--- NOTE | 2018-06-17 12:11 | Emergency Department Record ---
History of Present Illness - General Chief Complaint: Chest Pain Stated Complaint: CHEST PAINS/SWOLLEN LEGES Time Seen by Provider: 06/17/18 11:57 Source: Patient, Family Mode of Arrival: Ambulatory Limitations: No limitations - History of Present Illness Initial Comments: The patient is here due to multiple complaints. His main complaints are sharp stabbing anterior R sided CP's off and on for 3 days. He denies any SOB, KIMBERLEY, LEW or pleuritic component to the pain. Additionally has has had lower leg swelling for 2-3 weeks but denies any calf or thigh pain. Additionally he has been experiencing intermittent lightheadedness and has been confused at times with directions while driving. Presently the patient and family deny any confusion. The patient denies any recent fever, chills, new medicines, cough, trauma, balance issues or neck pain. MD Complaint: Chest pain Onset/Timin -: Days(s) - Related Data Home Medications Medication Instructions Recorded Confirmed Last Taken No Home Med [NO HOME MEDS] 06/17/18 06/17/18 Unknown Allergies Allergy/AdvReac Type Severity Reaction Status Date / Time No Known Drug Allergies Allergy Verified 06/17/18 12:20 Travel Screening - Travel/Exposure Within Last 30 Days Have you traveled within the last 30 days?: No - Travel/Exposure Within Last Year Have you traveled outside the [place] in the last year?: No - Additonal Travel Details Have you been exposed to anyone with a communicable illness?: No Review of Systems Constitutional: Denies: Chills, Fever Eyes: Denies: Eye discharge ENT: Denies: Congestion Respiratory: Denies: Cough, Dyspnea Cardiovascular: Reports: Chest pain. Denies: Arrhythmia, Dyspnea on exertion Endocrine: Reports: Fatigue Gastrointestinal: Denies: Diarrhea, Nausea, Vomiting Genitourinary: Denies: Dysuria Musculoskeletal: Denies: Arthralgia Skin: Denies: Bruising Neurological: Denies: Abnormal gait Past Medical History - SOCIAL HISTORY Smoking Status: Never smoker - RESPIRATORY Hx Respiratory Disorders: Yes Hx Asthma: No Hx Bronchitis: Yes (2017) Hx COPD: No Hx Dyspnea: No Hx Pneumonia: Yes (as an ) Hx Pulmonary Embolism: No Hx Sleep Apnea: No Hx Tuberculosis: No Hx of CPAP: No - CARDIOVASCULAR Hx Cardio Disorders: Yes Hx Abnormal EKG: No Hx Cardiac Cath: No Hx Chest Pain: Yes Hx CHF: No Hx Deep Vein Thrombosis: No Hx Edema: Yes Hx Heart Attack: No Hx Hypertension: No Hx Hypotension: No Hx Irregular Heartbeat: No Hx Palpitations: Yes Hx Pacemaker/Defib: No Hx Vascular Disease: No - NEURO Hx Neuro Disorders: Yes Hx Brain Tumor: No Hx CVA: No Hx Dementia: No Hx Dizziness: No Hx Headaches: Yes (migraines) Hx Neuropathy: No Hx Parkinson's Disease: No Hx Seizures: No Hx Speech Problem: No Hx TIA: Yes (x2 last 2014) - GI Hx GI Disorders: No - Hx Genitourinary Disorders: Yes Hx Bladder Problem: No Hx Dialysis: No Hx Kidney Stones: Yes Hx Prostate Problems: No Hx Renal Disease: No Hx UTI: No - ENDOCRINE Hx Endocrine Disorders: No Hx Diabetes: No Hx Thyroid Disease: No - MUSCULOSKELETAL Hx Musculoskeletal Disorders: No Hx Arthritis: No Hx Back Injury: No Hx Fibromyalgia: No Hx Gout: No Hx Musculoskeletal Disease: No Hx Osteoporosis: No - PSYCH Hx Psych Problems: Yes Hx Anxiety: Yes Hx Behavior Problems: No Hx Depression: No Hx Emotional Abuse: No Hx Sexual Abuse: No Hx Suicide Attempt: No - HEMATOLOGY/ONCOLOGY Hx Hematology/Oncology Disorders: No Family Medical History Any Significant Family History?: No Hx Cancer: Grandparents Hx Heart Disease: Father, Grandparents Hx HTN: Father, Mother Hx Stroke: Mother Physical Exam - General General Appearance: Alert, Oriented x3, Cooperative, No acute distress - Head Head exam: Atraumatic, Normocephalic, Normal inspection - Eye Eye exam: Normal appearance, PERRL, EOMI - ENT Throat exam: Normal inspection. negative: Tonsillar erythema, Tonsillar exudate - Neck Neck exam: Normal inspection, Full ROM. negative: Tenderness - Respiratory Respiratory exam: Normal lung sounds bilaterally. negative: Respiratory distress - Cardiovascular Cardiovascular Exam: Regular rate, Normal rhythm, Normal heart sounds. negative : Diastolic murmur, Systolic murmur - GI/Abdominal GI/Abdominal exam: Soft, Normal bowel sounds. negative: Tenderness - Extremities Extremities exam: Normal inspection, Full ROM, Pedal edema (Trace bilaterally.) . negative: Tenderness - Back Back exam: Reports: Normal inspection - Neurological Neurological exam: Alert, Normal gait, Oriented X3, Other (Neg Drift and Rhomberg.). negative: Abnormal gait, Altered, Motor sensory deficit Course Vital Signs 06/17/18 11:56 Temperature 97.4 F L Pulse Rate 66 Respiratory 16 Rate Blood Pressure 144/88 Pulse Ox 100 - Reevaluation(s) Reevaluation #1: The patient is resting comfortably with no new complaints. He denies any new symptoms but is having the intermittent R anterior chest sharp pains. I did explain to him that so far everything has been normal. 06/17/18 13:30 Reevaluation #2: The patient now has become angry at the long wait due to the ER being very busy. The nurse Fitz did come to me regarding the patient wanting to leave ama. Before I could get in the room the patient decided to Elope. He would not wait for any AMA instructions and would not sign any AMA papers. 06/17/18 14:28 Medical Decision Making - Data Complexity MDM Data: Labs Ordered and/or Reviewed, X-Ray Ordered and/or Reviewed, EKG Ordered and/or Reviewed - Lab Data Result diagrams: 06/17/18 12:18 06/17/18 12:18 - EKG Data -: EKG Interpreted by Me EKG: No Acute Changes, Normal EKG - Radiology Data Radiology results: Report reviewed (CXR: Neg Head CT: Neg for any acute changes.) Disposition Disposition: Discharge Clinical Impression: Leg swelling Disposition: Against Medical Advice Condition: (1) Good Forms: Patient Portal Access Time of Disposition: 14:30 Quality - Quality Measures Quality Measures: N/A - Blood Pressure Screening View Details: Yes Does Patient Have Any of the Following: No Blood Pressure Classification: Pre-Hypertensive BP Reading Systolic Measurement: 144 Diastolic Measurement: 88 Screening for High Blood Pressure: < Pre-Hypertensive BP, F/U Documented > [ [id number]] Pre-Hypertensive Follow-up Interventions: Referral to alternative/primary care provider.
[2018-06-17 12:34] LABS: BASO % 0.6 % (0-6); GRAN % 67.2 % (47-80); HEMOGLOBIN 15.7 gm/dl (14.0-18.0); LYMPH % 21.6 % (16-45); MEAN CELL VOLUME 89.3 fl (81-97); MEAN CORPUSCULAR HEMOGLOBIN 30.5 pg (27-33); MEAN CORPUSCULAR HGB CONC 34.1 g/dl (32-36); MEAN PLATELET VOLUME 10.3 fl (7.4-10.4); MONO % 7.6 % (0-9); PLATELET COUNT 262 K/uL (130-400); RED BLOOD COUNT 5.15 M/uL (4.40-5.70); RED CELL DISTRIBUTION WIDTH 13.3 % (11.5-14.5)
[2018-06-17 12:44] LABS: BLOOD UREA NITROGEN 11 mg/dL (6-20); EST GLOMERULAR FILTRATION RATE > 60 mL/min
[2018-06-17 12:45] LABS: TOTAL PROTEIN 6.4 g/dL (6.6-8.7)
[2018-06-17 12:47] LABS: GLUCOSE,RANDOM 139 mg/dL (74-109); PARTIAL THROMBOPLASTIN TIME 30.1 SECONDS (24.5-39.1); PROTHROMBIN TIME (PATIENT) 10.5 SECONDS (9.5-12.1)
[2018-06-17 12:49] LABS: ALB/GLOB RATIO 1.9 (1.1-1.8); ALBUMIN 4.2 g/dL (4.0-5.0); ALKALINE PHOSPHATASE 85 U/L (40-129); ALT/SGPT 44 U/L (<41); AST/SGOT 29 U/L (10.0-50.0)
[2018-06-17 12:53] LABS: CKMB 6.2 ng/mL (<6.73)
[2018-06-17 12:58] LABS: URINE APPEARANCE CLEAR; URINE BILIRUBIN NEGATIVE (NEGATIVE); URINE BLOOD NEGATIVE (NEGATIVE); URINE COLOR YELLOW; URINE GLUCOSE (UA) NEGATIVE (NEGATIVE); URINE KETONE NEGATIVE (NEGATIVE); URINE LEUKOCYTE ESTERASE NEGATIVE (NEGATIVE); URINE NITRITE NEGATIVE (NEGATIVE); URINE PROTEIN NEGATIVE (NEGATIVE); URINE UROBILINOGEN 0.2 E.U./dL (0.20 - 1.00)
[2018-06-17 13:00] LABS: THYROID STIMULATING HORMONE 1.89 uIU/mL (0.270-4.20)
[2018-06-17 13:03] LABS: CREATINE PHOSPHOKINASE 257 U/L (39-308)
[2018-06-17] MEDS ORDERED: FUROSEMIDE 20 MG TABLET PO ONE (13:34)
--- NOTE | 2018-06-21 05:48 | CT SCAN REPORT ---
DATE: 06/17/2018 at 1248. EXAM: CT OF THE BRAIN WITHOUT CONTRAST. HISTORY: Right-sided headache extending into the right eye for two to three days. TECHNIQUE: Routine noncontrast CT of the brain. COMPARISON: CT of the brain without contrast dated 10/31/2017. FINDINGS: The ventricles and subarachnoid spaces remain normal in size for age. No new suspicious area of abnormally increased or decreased attenuation is noted throughout the brain substance. The gonzalez-white interfaces are distinct. No abnormal extra-axial fluid collection is seen. No acute skull abnormality is identified. On the first image obtained, there is visualization of what is likely a retention cyst in the left maxillary sinus. The paranasal sinuses and mastoid air cells are otherwise clear. The orbits as visualized are unremarkable. IMPRESSION: 1. NO CT EVIDENCE OF AN ACUTE INTRACRANIAL ABNORMALITY WITHOUT CHANGE SINCE 09/2017. 2. PROBABLE LEFT MAXILLARY SINUS RETENTION CYST, INCOMPLETELY IMAGED. Job Number: [id number] MTDD
--- NOTE | 2018-06-21 05:52 | RADIOLOGY REPORT ---
DATE: 06/17/2018 at 1241. EXAM: CHEST, TWO VIEWS. HISTORY: Anterior chest pain with tightness and burning for one week. Leg swelling. TECHNIQUE: Upright PA and lateral views of the chest. COMPARISON: Two-view chest radiographic examination dated 03/25/2017. FINDINGS: The heart is not enlarged and the pulmonary vasculature is nondilated. The lungs and pleural spaces are clear. The osseus structures are intact. Surgical clips are noted in the upper abdomen. IMPRESSION: NO EVIDENCE OF ACUTE CARDIOPULMONARY DISEASE. Job Number: [id number] MTDD
== END 2018-06-17 14:24 | disposition left against medical advice (07) ==
LOC: ER 11:51
DX: R60.0 Localized edema (principal); R07.89 Other chest pain; R42 Dizziness and giddiness
CPT/HCPCS: 70450; 71046; 80053; 81003; 82140; 82550; 82553; 83880; 84443; 84484; 85025; 85610; 85730; 93005; 93010; 99284